=== PATIENT | female | born 1940 | race Caucasian/White ===

== ENCOUNTER 2019-06-27 17:51 | Inpatient (IN) | payer MEDICARE ==
[2019-06-27] MEDS ORDERED: Digoxin 0.5 MG/2 ML AMP ONE (18:01)
[2019-06-27] MEDS ORDERED: Dextrose 50% Abboject 50 ML SYRINGE SLOW IVP PRN (19:27)
[2019-06-27] MEDS ORDERED: Dextrose 5% in Water 1,000 ML IV PRN (19:27)
[2019-06-27] MEDS ORDERED: Diltiazem 125 MG in Sodium Chloride 0.9% 100 ML IVPB SCH (19:30)
[2019-06-27 19:51] LABS: Troponin I 0.023 ng/mL (< 0.028)
[2019-06-27 22:51] LABS: Troponin I 0.033 ng/mL (< 0.028)
[2019-06-27] MEDS: HumaLOG 300 UNITS/3 ML VIAL SC PRN (22:54)
--- NOTE | 2019-06-28 02:06 | HP ---
CHIEF COMPLAINT: Shortness of breath. HISTORY OF PRESENT ILLNESS: This patient is a 79-year-old female, who was at [facility] in [place] for rehabilitation. The patient reports that she was doing relatively well at home, getting up and around, but then started having some generalized weakness. Says she was admitted to the hospital for 7 days or 8 days, started stabilizing and was sent to rehabilitation. Said she was getting stronger working with rehabilitation, but then suddenly just became very profoundly weak and short of breath. She was apparently being sent for an outpatient chest x-ray. However, when the ambulance service arrived, the patient was noted to be very tachypneic and have some respiratory distress and saturations were 77-78% on room air. Therefore, the decision was made to bring the patient to the emergency department. She was initially seen in [facility] ER, she was tachycardic and tachypneic. She had a pulse rate documented as high as 141, although it was fairly variable. She had labs, which were remarkable for hemoglobin of 10.9, MCV 102, lipase 11, CK 19, troponin is 0.028. Chemistries normal with the exception of a glucose of 503. Sodium 135, potassium 5.0, chloride 82, anion gap 16, BUN 19, creatinine 0.94. BNP was 411. Chest x-ray showed CHF with pleural effusions. Chest CT showed no pulmonary embolism, but CHF with pleural effusions there. The patient did have a blood pressure noted as low as 66/45, that was with a heart rate of 150s. She appeared to be in new onset atrial fibrillation with rapid ventricular response. She was given Lovenox and Cardizem. The patient was started on diltiazem drip and given 10 units of insulin and transferred to our facility. Currently, the patient reports that she is feeling somewhat better. She is breathing a little easier. She reports that she has not had any fevers or chills. She has had a little bit of a cough. Also says that she extracted a booger from her nose that was not normal. She denies any specific pain in the chest. REVIEW OF SYSTEMS: The patient reported that she had very poor appetite, but was actually somewhat better. She has been voiding well with Lasix and she has been having fairly regular bowel movements. She also endorsed having episodes of fairly severe peripheral edema at times. All other systems reviewed, all pertinent positives and negatives noted in the history of present illness. PAST MEDICAL HISTORY: Primarily obtained from her records from [facility] and the patient herself include COPD, hypertension, low back pain, hyponatremia, "unspecified tachycardia," systolic congestive heart failure, although the patient herself says she is not familiar with having had that diagnosis. Apparently has history of some oropharyngeal dysphagia and is on a mechanical soft diet. She has a history of muscle wasting and atrophy and history of an abdominal hernia. PAST SURGICAL HISTORY: The patient has had bilateral cataract ectomy with intra-ocular lens implants. FAMILY HISTORY: Noncontributory. SOCIAL HISTORY: The patient is . Nonsmoker, nondrinker, and nondrug user. She is DNAR. Her is her surrogate decision maker. CURRENT MEDICATIONS: Tylenol No. 3 p.r.n. low back pain, budesonide 0.5 mg or 2 mL 0.5 inhaled orally b.i.d., diltiazem ER 60 mg p.o. b.i.d. for "dysrhythmia," prednisone 40 mg p.o. daily, Lasix 20 mg daily, docusate 100 mg b.i.d., pantoprazole 40 mg daily, DuoNebs q.6 hours p.r.n. and Tylenol p.r.n. PHYSICAL EXAMINATION: VITAL SIGNS: Now, BP 126/67, pulse ranging from 86 to 120s, O2 saturations 100% on 4 L via face mask. GENERAL: The patient is awake and alert. She is very pleasant, cooperative. HEENT: PERRL. She has some arcus senilis. No OP lesions other than slightly dry oral mucosa. NECK: Supple and symmetric. HEART: Regular at the moment with no murmurs or rubs. LUNGS: Diminished with bibasilar rales. ABDOMEN: Minimally distended, minimally hypertympanic, nontender. Normal bowel sounds. EXTREMITIES: Reveal trace to 1+ edema at the sock line area. She has some chronic stasis dermatitis and some superficial sloughing of scaling skin, likely due to chronic stasis as well. PSYCH: The patient appears to have normal affect and behavior. NEURO: The patient appears to have spontaneous movement of her extremities with no focal deficits. DIAGNOSTIC STUDIES: EKG here, there are several ranging from possible sinus tachycardia versus atrial flutter to atrial fibrillation. IMPRESSION AND PLAN: 1. Atrial fibrillation with rapid ventricular response. This appears to be new, although she does have the diagnosis of "unspecified tachycardia" on her records from [facility]. She is on diltiazem, which is apparently for heart rate control. She is currently on a diltiazem drip, which we will continue. She has had Lovenox, which we will continue at a mg per kg b.i.d. as well. Presently, she appears to be tolerating the atrial fibrillation and the tachycardia relatively well. We will continue with the Cardizem drip for now. She also received 0.5 of digoxin in the emergency department, which may need to be continued in the morning if she is still tachycardic. 2. Acute hypoxic respiratory failure, likely combination of acute atrial fibrillation with rapid ventricular response, congestive heart failure and pleural effusions. We will continue with supplemental oxygen as needed. 3. Congestive heart failure, unclear as to the type of heart failure, could be high-output failure from tachycardia, although it appears to likely be more long-term. We will obtain an echocardiogram as we do not have any on record for her. We will also consult Cardiology. Continue with the Lasix and for now the diltiazem drip. May need to be converted to beta blockers or ANNETTE inhibitors once we know the results of her echocardiogram. 4. Chronic obstructive pulmonary disease. The patient appears to be on prednisone at 40 mg a day for chronic obstructive pulmonary disease. She also takes budesonide. We will keep her going with some nebulizers p.r.n. while she is here. 5. Hypotension. It appears the patient's hypotension was related to the episodes of tachycardia, appears to be stable presently. 6. History of hypertension. Again, holding any of her p.o. medications until she is stable and off the diltiazem drip. 7. History of stasis dermatitis of the lower extremities. Concerning that this could be related to either her calcium channel westley or heart failure. Again, we will know more once we have the echocardiogram results. Job ID: [id number]
[2019-06-28] MEDS: Furosemide 40 MG/4 ML VIAL SLOW IVP SCH ×2 (05:18→15:21)
[2019-06-28 05:31] LABS: #Basophils 0.1 thou/uL (0.0-0.2); #Lymphocytes 0.8 thou/uL (1.20-3.40); #Monocytes 0.5 thou/uL (0.11-0.59); #Neutrophils 6.8 thou/uL (1.40-6.50); %Basophils 0.7 % (0.0-1.0); %Eosinophils 0.4 % (0.0-10.0); %Lymphocytes 9.6 % (21.0-51.0); %Monocytes 5.5 % (0.0-10.0); %Neutrophils 83.8 % (42.0-75.0); Hemoglobin 11.3 g/dL (12.0-16.0); Mean Corpuscular HGB CONC 31.9 g/dL (32.0-36.0); Mean Corpuscular Hemoglobin 31.9 pg (27.0-31.0); Mean Platelet Volume 7.8 fL (7.4-10.4); Platelet Count 228 thou/uL (130-400); RBC Distribution Width 12.5 % (11.5-14.5); Red Blood Cell (RBC) Count 3.53 mill/uL (4.20-5.40); White Blood Cell (WBC) Count 8.2 thou/uL (4.8-10.8)
[2019-06-28 05:52] LABS: ALT (SGPT) 28 U/L (8-55); AST (SGOT) 9 U/L (5-34); Albumin 3.6 g/dL (3.4-4.8); Alkaline Phosphatase 78 U/L (40-150); BUN (Urea Nitrogen) 15 mg/dL (9.8-20.1); Bilirubin, Total 0.4 mg/dL (0.2-1.2); Calc. Creatinine Clearance 74 mL/min (70-130); Calcium 8.8 mg/dL (7.8-10.44); Estimated GFR-MDRD 87; Globulin 2.4 g/dL (2.4-3.5); Glucose 133 mg/dL (83-110)
[2019-06-28 06:01] LABS: Anion Gap 13 mmol/L (10-20); Chloride 84 mmol/L (98-107); Potassium 3.6 mmol/L (3.5-5.1); Sodium 135 mmol/L (136-145)
[2019-06-28 06:04] LABS: Carbon Dioxide 42 mmol/L (23-31)
--- NOTE | 2019-06-28 09:03 | PDOC.HOSPP ---
- Subjective Encounter Date: 06/28/19 Encounter Time: 09:01 Subjective: Feeling better in general. Hungry. Breathing is better. - Objective Vital Signs & Weight: Vital Signs (12 hours) Temp Pulse Ox 06/28/19 07:21 97.2 F L 06/28/19 03:31 98.3 F 06/27/19 23:57 97.4 F L 06/27/19 21:30 98.1 F 96 Weight Weight 147 lb 11.355 oz Most Recent Monitor Data Heart Rate from ECG 84 NIBP 119/55 NIBP BP-Mean 76 Respiration from ECG 16 SpO2 95 I&O: 06/27/19 06/28/19 06/29/19 06:59 06:59 06:59 Intake Total 10 Balance 10 Result Diagrams: 06/28/19 05:22 06/28/19 05:22 Additional Labs: Accuchecks 06/28/19 06/27/19 05:53 18:46 POC Glucose 147 H 301 H Hospitalist ROS - Medication Medications: Active Medications Generic Name Dose Route Start Last Admin Trade Name Frankie PRN Reason Stop Dose Admin Furosemide 40 mg 06/28/19 06:00 06/28/19 05:18 Lasix SLOW IVP 40 mg 0600,1400 WHITNEY Administration Insulin Human Lispro 0 units 06/27/19 19:27 06/27/19 22:54 Humalog SC 4 unit .MILD SLIDING SCALE PRN Administration Mild Correctional Scale - Exam General Appearance: NAD, awake alert General - other findings: Gown wet, smells like urine. Heart: RRR, no murmur, no gallops, no rubs, normal peripheral pulses Respiratory: CTAB, no wheezes, no rales Gastrointestinal: soft, non-tender, non-distended, normal bowel sounds, no palpable masses, no hepatomegaly, no splenomegaly, no bruit Skin: normal turgor Neurological: CN's grossly intact Musculoskeletal: normal tone, generalized weakness Psychiatric: normal affect, normal behavior, A&O x 3 Hosp A/P (1) Atrial fibrillation with rapid ventricular response Code(s): I48.91 - UNSPECIFIED ATRIAL FIBRILLATION Status: Acute (2) Acute respiratory failure with hypoxia Code(s): J96.01 - ACUTE RESPIRATORY FAILURE WITH HYPOXIA Status: Acute (3) CHF (congestive heart failure) Code(s): I50.9 - HEART FAILURE, UNSPECIFIED Status: Acute (4) Hyperglycemia Code(s): R73.9 - HYPERGLYCEMIA, UNSPECIFIED Status: Acute (5) Alkalosis Code(s): E87.3 - ALKALOSIS Status: Acute (6) COPD (chronic obstructive pulmonary disease) Status: Acute (7) Hypotension Status: Acute (8) Elevated troponin Code(s): R74.8 - ABNORMAL LEVELS OF OTHER SERUM ENZYMES Status: Acute (9) Macrocytic anemia Code(s): D53.9 - NUTRITIONAL ANEMIA, UNSPECIFIED Status: Acute - Plan Feeling better. Continue Diuresis, supplemental oxygen. Resume po Cardizem. ECHO pending. Depending on results, may need to consider BB or ACEI. Continue anticoagulation. Cards consult pending. Glucose much improved. Resume heart healthy diet, mechanical soft. PRN nebs. Hypotension resolved. Appeared to rate related. Trops minimally elevated. Likely demand ischemia. Check 3rd now. B12, Folate in am.
[2019-06-28 09:50] LABS: Troponin I 0.063 ng/mL (< 0.028)
[2019-06-28] MEDS: Enoxaparin Sodium 80 MG/0.8 ML SYRINGE SC SCH ×2 (09:51→20:21)
[2019-06-28] MEDS: predniSONE 20 MG TAB PO SCH (09:51)
[2019-06-28] MEDS: Aspirin 81 mg Enteric Coated Tablet PO SCH (09:51)
[2019-06-28] MEDS: Diltiazem HCl SR 60 mg Capsule PO SCH ×2 (09:51→20:21)
[2019-06-28] MEDS: Pantoprazole 40 MG GRANULES PACKET PO SCH (09:52)
[2019-06-28] MEDS: Acetaminophen/Codeine 30-300mg Tablet PO SCH ×3 (11:19→20:19)
[2019-06-28] MEDS: HumaLOG 300 UNITS/3 ML VIAL SC PRN ×3 (11:20→20:16)
[2019-06-28] MEDS ORDERED: Acetaminophen/Codeine 30-300mg Tablet PO SCH (15:00)
[2019-06-28] MEDS ORDERED: acetaZOLAMIDE Sodium 500 mg Vial IVP SCH (17:45)
[2019-06-28] MEDS ORDERED: Sodium Chloride 0.9% 15 ML NEB ONE (17:56)
--- NOTE | 2019-06-28 18:37 | CON ---
DATE OF CONSULTATION: 06/28/2019 REASON FOR CONSULTATION: Tachycardia. HISTORY OF PRESENT ILLNESS: Ms. Cedillo is a pleasant 79-year-old white female, who I have seen in the past, who comes to the hospital for shortness of breath. She was in rehab and was getting more short of breath than normal. She was taken for an outpatient chest x-ray via ambulance, but it was noted that her sats were about 77%, so she was taken to the ER in [place] and was found to be tachycardic and tachypneic with heart rate in the 140s. EKG appeared to be atrial flutter versus SVT or an atrial tach, so she was admitted for diuresis. She eventually converted back into sinus rhythm. Her blood pressure had been as low as 60s over 40s with the heart rate in the 150s. Currently, she is much better now. Her blood pressure is in the 140s and she is no longer on a BiPAP. She is on a nasal cannula on 2 L only. PAST MEDICAL HISTORY: 1. COPD. 2. Hypertension. 3. History of chronic low back pain. 4. Hyponatremia in the past. 5. History of dysphagia. 6. Muscle wasting and atrophy. 7. Abdominal hernia in the past. PAST SURGICAL HISTORY: Bilateral cataract surgery. FAMILY HISTORY: Noncontributory. SOCIAL HISTORY: No alcohol, tobacco, or drugs. is the decision maker. She is DNR, but she is amenable to procedures. OUTPATIENT MEDICATIONS: 1. Tylenol 3. 2. Budesonide. 3. Diltiazem 60 mg b.i.d. 4. Prednisone 40 mg a day. 5. Lasix 20 mg a day. 6. Docusate. 7. Pantoprazole. 8. DuoNeb. 9. Tylenol. ALLERGIES: NO KNOWN DRUG ALLERGIES. REVIEW OF SYSTEMS: A 12-point review of systems was done and was all negative unless stated in the history of present illness. PHYSICAL EXAMINATION: VITAL SIGNS: Temperature 97.1, pulse 79, respiratory rate 20, saturating 100% on 1 L nasal cannula, blood pressure 117/54. GENERAL: Awake, alert, and oriented x3. No distress. HEENT: Normocephalic and atraumatic. NECK: Supple. LUNGS: Clear. CARDIOVASCULAR: S1 and S2. No S3 or S4. No murmurs. ABDOMEN: Soft. Positive bowel sounds. EXTREMITIES: Trace edema. SKIN: Warm and dry. LABORATORY DATA: Laboratory work was reviewed. CBC with a white count of 8.2, hemoglobin 11.3, hematocrit 35.3, platelet count of 228. Chemistries with a sodium of 135, potassium was 3.6, chloride of 84, carbon dioxide of 42, glucose in the 140s to 200s. Troponin was in the indeterminate range at 0.02, 0.03, and 0.06. Echocardiogram was reviewed. LV function was 55% to 60% with normal size left atrium, [id number] TR, and elevated right ventricular systolic pressures. EKG was reviewed, appears to be either an atrial tachycardia. At times, it looks more like a 2:1 atrial flutter. Currently in sinus rhythm on telemetry. ASSESSMENT: 1. Atrial flutter with 2:1 atrioventricular block versus an atrial tachycardia. 2. Acute on chronic diastolic heart failure, improving. PLAN: 1. Continue IV diuresis. She is already doing a lot better. 2. Continue full anticoagulation just in case this is atrial flutter, which I think it is. 3. Continue her p.o. diltiazem as she is back in sinus with normal heart rate. 4. Consult Electrophysiology. They can decide if this is a rhythm that is amenable to catheter based ablation versus just medications. Thank you for letting us to participate in the care of your patient. We will follow. Job ID: [id number]
[2019-06-28] MEDS: Budesonide 0.5 MG/2 ML NEB NEB SCH (19:16)
[2019-06-28 23:18] LABS: Bilirubin Negative (Negative); Blood, Urine Negative (Negative); Clarity Clear (Clear); Glucose, Urine (Dipstick) 50 mg/dL (Negative); Leukocyte Negative Leu/uL (Negative); Nitrite Negative (Negative); Protein, Urine (Dipstick) 10 mg/dL (Neg-Trace); Urobilinogen Normal mg/dL (Less than 2)
--- NOTE | 2019-06-29 00:13 | CON ---
DATE OF CONSULTATION: HISTORY OF PRESENT ILLNESS: Ms. Cedillo is a very pleasant 79-year-old female. She apparently presented yesterday afternoon with complaints of shortness of breath. She was found to be in rapid atrial fibrillation. She subsequently has been admitted to the intermediate care unit. She is clinically improved. In fact, she is back in sinus rhythm. PAST MEDICAL HISTORY: Remarkable for, 1. COPD. 2. Hypertension. 3. History of hyponatremia. 4. History of heart failure. 5. History of swallowing dysfunction. 6. History of muscle wasting and deconditioning. 7. History of cataract surgery. SOCIAL HISTORY: She is a nonsmoker, nondrinker, nondrug user. She lives in [facility]. FAMILY HISTORY: Noncontributory. MEDICATIONS: Have been reviewed. PHYSICAL EXAMINATION: GENERAL: She is in no distress. She told me that she was at [facility]. VITAL SIGNS: Her blood pressure is 131/55, heart rate 83. She is afebrile. Respiratory rate is 20. HEAD AND NECK: Unremarkable. LUNGS: Clear. HEART: Regular rhythm. ABDOMEN: Soft and nontender. EXTREMITIES: Without clubbing, cyanosis, or edema. NEURO: Grossly nonfocal. LABORATORY DATA: White count 8.2, hemoglobin 11.3, platelets 228. Sodium 135, potassium 3.6, chloride 84, bicarb 42, BUN 15, and creatinine 0.6. Her bicarb in October 03 was 27. IMPRESSION: 1. Rapid atrial fibrillation. 2. Normal left ventricular systolic function this admission. 3. Metabolic alkalosis. 4. Anticoagulation for atrial fibrillation. It is unclear to me how much of a fall risk she is at this point. It would not be unreasonable to give her Diamox to help correct her alkalosis. I doubt this is an obesity hypoventilation alkalosis. We will follow her while she is the intermediate care unit. Job ID: [id number] This is a 50 minute consult with 50% of time spent on unit coordinating care [facility]
--- NOTE | 2019-06-29 02:03 | CON ---
DATE OF CONSULTATION: 06/28/2019 REASON FOR CONSULTATION: Atrial flutter. HISTORY OF PRESENT ILLNESS: Ms. Cedillo is a pleasant 79-year-old white female, who has history of coronary artery disease and has been followed by Dr. Bryant in the past. She was in the rehab facility at [place] for generalized weakness. She became more short of breath and was noted to have hypoxia. She was found to be tachycardic and tachypneic. EKG was performed which showed atrial tachycardia. She was transferred to [facility] and was treated with diuresis. She spontaneously converted to sinus rhythm. Blood pressure was initially low while in tachycardia down to 60 systolic. She is currently resting comfortably in bed in the IMCU unit. She was initially treated with BIPAP for respiratory distress. I have reviewed her EKG. It shows atrial tachycardia which was sustained. PAST MEDICAL HISTORY: 1. COPD. 2. Hypertension. 3. CAD. 4. Chronic low back pain. 5. Hyponatremia. 6. Dysphagia. 7. Generalized weakness. 8. Abdominal hernia. PAST SURGICAL HISTORY: Bilateral cataract surgery. SOCIAL HISTORY: and currently in the rehab facility at [place] prior to admission. No alcohol or tobacco. OUTPATIENT MEDICATIONS: 1. Tylenol. 2. Diltiazem 60 mg b.i.d. 3. Prednisone 40 mg daily. 4. Lasix 20 mg a day. 5. DuoNebs. 6. Docusate. 7. Pantoprazole. ALLERGIES: NO KNOWN DRUG ALLERGIES. REVIEW OF SYSTEMS: Positive for orthopnea and edema which have improved. No chest discomfort. No syncope. No seizures, unilateral weakness, or numbness, sensory deficits, speech deficits. PHYSICAL EXAMINATION: GENERAL: Alert and oriented x4, in no apparent distress. VITAL SIGNS: Temperature 97.1, pulse 79, respiratory rate 12, oxygen saturation 100% on 1 L nasal cannula, blood pressure 117/54. HEENT: No lesions. NECK: No JVD. CARDIOVASCULAR: Regular rate and rhythm. No murmurs, gallops, or rubs. LUNGS: Clear to auscultation bilaterally. Normal inspiratory effort. EXTREMITIES: 1+ edema bilaterally. SKIN: Warm and dry. LABORATORY DATA: Reviewed. Hemoglobin 11.3, platelet 228. Potassium 3.6, sodium 135. Indeterminate troponins. Echocardiogram, ejection fraction 55% to 60% with normal left atrial size, [id number] tricuspid regurgitation, and elevated right ventricular systolic pressures. ASSESSMENT: 1. Atrial tachycardia versus atypical atrial flutter. 2. Acute on chronic diastolic heart failure. RECOMMENDATIONS: 1. Agree with current diuresis. 2. The rhythm is minimal to radiofrequency ablation. We will continue diltiazem at this time. 3. Rediscussed ablation as an outpatient prior to discharge. Job ID: [id number]
[2019-06-29 04:32] LABS: BUN (Urea Nitrogen) 16 mg/dL (9.8-20.1); Calc. Creatinine Clearance 70 mL/min (70-130); Calcium 8.6 mg/dL (7.8-10.44); Estimated GFR-MDRD 81; Glucose 127 mg/dL (83-110)
[2019-06-29 04:41] LABS: Anion Gap 14 mmol/L (10-20); Carbon Dioxide 38 mmol/L (23-31); Chloride 83 mmol/L (98-107); Potassium 3.3 mmol/L (3.5-5.1); Sodium 132 mmol/L (136-145)
[2019-06-29 04:59] LABS: Folate (Folic Acid) 6.6 ng/mL (7.0-31.4)
[2019-06-29] MEDS: Furosemide 40 MG/4 ML VIAL SLOW IVP SCH ×2 (06:14→14:12)
[2019-06-29] MEDS: Budesonide 0.5 MG/2 ML NEB NEB SCH ×2 (07:57→18:50)
[2019-06-29] MEDS: Acetaminophen/Codeine 30-300mg Tablet PO SCH ×3 (08:38→20:33)
[2019-06-29] MEDS: predniSONE 20 MG TAB PO SCH (08:38)
[2019-06-29] MEDS: Diltiazem HCl SR 60 mg Capsule PO SCH ×2 (08:39→20:34)
[2019-06-29] MEDS: Pantoprazole 40 MG GRANULES PACKET PO SCH (08:39)
[2019-06-29] MEDS: Aspirin 81 mg Enteric Coated Tablet PO SCH (08:39)
[2019-06-29] MEDS: Enoxaparin Sodium 80 MG/0.8 ML SYRINGE SC SCH (08:39)
[2019-06-29] MEDS ORDERED: Potassium Chloride 20 MEQ TAB PO SCH (10:30)
--- NOTE | 2019-06-29 11:17 | PQF ---
CLINICAL DOCUMENTATION IMPROVEMENT CLARIFICATION FORM: ICD-10 Updated PLEASE DO AN ADDENDUM TO THE PROGRESS NOTE WITH ANY DOCUMENTATION UPDATES OR ADDITIONS AND CARRY THROUGH TO DC SUMMARY. THANK YOU. DATE: 06/29/19 ATTN: DR. VELASCO Please exercise your independent, professional judgment in responding to the clarification form. Clinical indicators are provided on the bottom of this form for your review Please check appropriate box(s): [ ] Acute Respiratory Failure: [ ] with Hypoxia[ ] with Hypercapnia [ ] Acute On Chronic Respiratory Failure: [ ] with Hypoxia [ ] with Hypercapnia [ ] Other diagnosis [ ] Unable to determine In addition, please specify: Present on Admission (POA): [ ] Yes [ ] No [ ] Unable to determine For continuity of documentation, please document condition throughout progress notes and discharge summary. Thank You. CLINICAL INDICATORS - SIGNS / SYMPTOMS / LABS ER NOTE: "INITIAL PULSE OX WAS 78%" "PATIENT REPORTS THAT SHE IS ON 4L OXYGEN AT HOME" PULSE 141 RR 24 RISKS: H/O COPD (H&P 06/27) FORMER SMOKER (ER NOTE) TREATMENT: CPAP IN ER (ER NOTE) IV LASIX (06/28-PRESENT) PREDISONE (06/28-PRESENT) PULMOCORT NEBS (06/28-PRESENT) DUONEBS (910-PRESENT) PULMONARY CONSULT IMCU MONITORING SAP [employer] Winform Viewer(This form is maintained as a part of the permanent medical record) 2014 [employer]. All Rights Reserved [email or web address] Office: [phone] [facility]
[2019-06-29] MEDS: HumaLOG 300 UNITS/3 ML VIAL SC PRN ×3 (11:38→20:38)
--- NOTE | 2019-06-29 11:52 | PRG ---
DATE OF SERVICE: 06/29/2019 SUBJECTIVE: Cindy Cedillo is oriented x1. She is in no distress. She still appears sinus rhythm. OBJECTIVE: VITAL SIGNS: O2 saturation is 94% on 2 L, heart rate is 90, blood pressure stable, respiratory rate in the teens. LUNGS: Clear. HEART: Regular rhythm. ABDOMEN: Soft, nontender. LABORATORY DATA: Sodium 132, potassium 3.3, chloride 83, bicarb 38, BUN 16, creatinine 0.7. IMPRESSION: 1. Atrial flutter. 2. Metabolic alkalosis, probably brought on by diuretics. 3. Alkalosis is improved with Diamox. 4. History of reported chronic obstructive pulmonary disease. 5. History of coronary artery disease. 6. Normal ejection fraction. 7. Diastolic heart failure. PLAN: 1. She will be transferred out of the intermediate care given her stability to telemetry. 2. We will follow from a distance. Job ID: [id number] MTDD
[2019-06-29] MEDS ORDERED: Cyanocobalamin 1000 MCG/ML VIAL IM SCH (12:00)
--- NOTE | 2019-06-29 15:39 | PDOC.CPN ---
- Subjective Date: 06/29/19 Time: 15:35 Interval history: She is doing well. no chest pain. No more arrhythmias. - Review of Systems General: denies: fever/chills, weight/appetite/sleep changes, night sweats, fatigue Respiratory: denies: cough, congestion, shortness of breath, exercise intolerance Cardiovascular: denies: chest pain, palpitation, edema, paroxysmal nocturnal dyspnea, orthopnea Gastrointestinal: denies: nausea, vomiting, diarrhea, constipation, abd pain, GI bleeding Musculoskeletal: reports: swelling. denies: pain, tenderness, stiffness, arthritis/arthralgias Neurological: reports: weakness. denies: numbness, syncope, seizure - Objective Allergies/Adverse Reactions: Allergies Allergy/AdvReac Type Severity Reaction Status Date / Time No Known Allergies Allergy Unverified 06/27/19 19:30 Visit Medications: Current Medications Acetaminophen/Codeine Phosphate (Tylenol #3) 1 tab PO TID [facility] Last Admin: 06/29/19 14:14 Dose: 1 tab Albuterol/Ipratropium (Duoneb) 3 ml NEB [id number] PRN PRN Reason: SOB &/or Wheezing Last Admin: 06/29/19 07:58 Dose: 3 ml Aspirin (Ecotrin) 81 mg PO DAILY [facility] Last Admin: 06/29/19 08:39 Dose: 81 mg Budesonide (Pulmicort Neb Solution) 0.5 mg NEB BID-RT [facility] Last Admin: 06/29/19 07:57 Dose: 0.5 mg Cyanocobalamin (Vitamin B-12) 1,000 mcg IM [id number] [facility] Last Admin: 06/29/19 11:38 Dose: 1,000 mcg Dextrose/Water (Dextrose 50%) 25 gm SLOW IVP PRN PRN PRN Reason: Hypoglycemia Diltiazem HCl (Cardizem Sr) 60 mg PO BID [facility] Last Admin: 06/29/19 08:39 Dose: 60 mg Enoxaparin Sodium (Lovenox) 30 mg SC 0900 [facility] Folic Acid (Folvite) 1 mg PO DAILY [facility] Furosemide (Lasix) 40 mg PO DAILY-[facility] Glucagon (Glucagon) 1 mg IM PRN PRN PRN Reason: Hypoglycemia Dextrose/Water (D5w) 1,000 mls @ 0 mls/hr IV .Q0M PRN PRN Reason: Hypoglycemia Insulin Human Lispro (Humalog) 0 units SC .MILD SLIDING SCALE PRN PRN Reason: Mild Correctional Scale Last Admin: 06/29/19 11:38 Dose: 5 unit Metoprolol Succinate (Toprol Xl) 25 mg PO DAILY [facility] Pantoprazole Sodium (Protonix) 20 mg PO DAILY [facility] Last Admin: 06/29/19 08:39 Dose: 20 mg Prednisone (Prednisone) 20 mg PO QAM-WM [facility] Last Admin: 06/29/19 08:38 Dose: 20 mg Sodium Chloride (Flush - Normal Saline) 10 ml IVF PRN PRN PRN Reason: Saline Flush Last Admin: 06/28/19 20:27 Dose: 10 ml Vital Signs & Weight: Vital Signs Temp Pulse Resp BP Pulse Ox 06/29/19 11:35 98.1 F 92 18 135/58 L 97 06/29/19 10:32 98.0 F 88 18 120/56 L 97 06/29/19 08:02 94 L 06/29/19 07:57 94 21 H 06/29/19 07:33 96 06/29/19 07:28 97.9 F 06/29/19 03:49 97.6 F Admit Weight 147 lb 11.355 oz Weight 144 lb 6.444 oz - Physical Exam General: alert & oriented x3 HEENT: mucus membranes moist Neck: supple neck Cardiac: regular rate and rhythm, no murmur Lungs: clear to auscultation Neuro: grossly intact Abdomen: active bowel sounds, soft, non-tender Skin: clear Musculoskeletal: normal range of motion - Labs Result Diagrams: 06/28/19 05:22 06/29/19 03:38 Troponin/CKMB Troponin I 0.063 ng/mL (< 0.028) H 06/28/19 09:16 - Telemetry Sinus rhythms and dysrhythmias: sinus rhythm - Assessment/Plan Assessment/Plan: 1. Atrial tachycardia 2. Acute on chronic systolic heart failure, improved. PLAN: - Switch to PO lasix. - EP evaluation appreciated, likely atrial tach and not flutter. - Will discontinue full dose lovenox and switch to DVT prophylaxis dose level. - Will start BB and continue diltiazem. - Monitor on telemetry. - Will need placement for rehab most likely. - Would prefer not to start flecainide unless patient shows compliance. - Will follow.
--- NOTE | 2019-06-29 16:44 | PDOC.HOSPP ---
- Subjective Subjective: Feeling better. Breathing more comfortably. No complaints. - Objective Vital Signs & Weight: Vital Signs (12 hours) Temp Pulse Resp BP Pulse Ox 06/29/19 16:08 97.9 F 80 18 113/53 L 98 06/29/19 11:35 98.1 F 92 18 135/58 L 97 06/29/19 10:32 98.0 F 88 18 120/56 L 97 06/29/19 08:02 94 L 06/29/19 07:57 94 21 H 06/29/19 07:33 96 06/29/19 07:28 97.9 F Weight Admit Weight 147 lb 11.355 oz Weight 144 lb 6.444 oz Most Recent Monitor Data Heart Rate from ECG 90 NIBP 126/48 NIBP BP-Mean 74 Respiration from ECG 18 SpO2 95 I&O: 06/28/19 06/29/19 06/30/19 06:59 06:59 06:59 Intake Total 10 650 Output Total 1150 Balance 10 -500 Result Diagrams: 06/28/19 05:22 06/29/19 03:38 Additional Labs: Accuchecks 06/29/19 06/29/19 06/28/19 11:09 05:38 20:14 POC Glucose 349 H 133 H 269 H 06/28/19 16:35 POC Glucose 296 H Hospitalist ROS - Medication Medications: Active Medications Generic Name Dose Route Start Last Admin Trade Name Freq PRN Reason Stop Dose Admin Acetaminophen/Codeine Phosphate 1 tab 06/28/19 21:00 06/29/19 14:14 Tylenol #3 PO 1 tab TID WHITNEY Administration Albuterol/Ipratropium 3 ml 06/27/19 19:32 06/29/19 07:58 Duoneb NEB 3 ml [id number] PRN Administration SOB &/or Wheezing Aspirin 81 mg 06/28/19 09:00 06/29/19 08:39 Ecotrin PO 81 mg DAILY WHITNEY Administration Budesonide 0.5 mg 06/28/19 18:30 06/29/19 07:57 Pulmicort Neb Solution NEB 0.5 mg BID-RT WHITNEY Administration Cyanocobalamin 1,000 mcg 06/29/19 12:00 06/29/19 11:38 Vitamin B-12 IM 1,000 mcg [id number] WHITNEY Administration Diltiazem HCl 60 mg 06/28/19 09:00 06/29/19 08:39 Cardizem Sr PO 60 mg BID WHITNEY Administration Insulin Human Lispro 0 units 06/27/19 19:27 06/29/19 11:38 Humalog SC 5 unit .MILD SLIDING SCALE PRN Administration Mild Correctional Scale Pantoprazole Sodium 20 mg 06/28/19 09:00 06/29/19 08:39 Protonix PO 20 mg DAILY WHITNEY Administration Prednisone 20 mg 06/28/19 08:00 06/29/19 08:38 Prednisone PO 20 mg QAM-WM WHITNEY Administration Sodium Chloride 10 ml 06/27/19 19:32 06/28/19 20:27 Flush - Normal Saline IVF 10 ml PRN PRN Administration Saline Flush - Exam General Appearance: NAD, awake alert Heart: RRR, no murmur, no gallops, no rubs, normal peripheral pulses Respiratory: CTAB, no wheezes, no rales, no ronchi, normal chest expansion, no tachypnea, normal percussion Gastrointestinal: soft, non-tender, non-distended, normal bowel sounds, no palpable masses, no hepatomegaly, no splenomegaly, no bruit Extremities: no cyanosis, no clubbing, no edema Musculoskeletal: normal tone Hosp A/P (1) Atrial fibrillation with rapid ventricular response Code(s): I48.91 - UNSPECIFIED ATRIAL FIBRILLATION Status: Ruled-out (2) Acute respiratory failure with hypoxia Code(s): J96.01 - ACUTE RESPIRATORY FAILURE WITH HYPOXIA Status: Acute (3) CHF (congestive heart failure) Code(s): I50.9 - HEART FAILURE, UNSPECIFIED Status: Acute Qualifiers: Heart failure type: systolic (4) Hyperglycemia Code(s): R73.9 - HYPERGLYCEMIA, UNSPECIFIED Status: Acute (5) Alkalosis Code(s): E87.3 - ALKALOSIS Status: Acute (6) COPD (chronic obstructive pulmonary disease) Status: Acute (7) Hypotension Status: Acute (8) Elevated troponin Code(s): R74.8 - ABNORMAL LEVELS OF OTHER SERUM ENZYMES Status: Acute (9) Macrocytic anemia Code(s): D53.9 - NUTRITIONAL ANEMIA, UNSPECIFIED Status: Acute (10) B12 deficiency Code(s): E53.8 - DEFICIENCY OF OTHER SPECIFIED B GROUP VITAMINS Status: Acute (11) Folate deficiency Code(s): E53.8 - DEFICIENCY OF OTHER SPECIFIED B GROUP VITAMINS Status: Acute - Plan Feeling better. Continue Diuresis, supplemental oxygen. Resume po Cardizem. Cards added BB. ECHO with EF 55% and Mod TR. Continue anticoagulation. Glucose much improved. Resume heart healthy diet, mechanical soft. PRN nebs. Hypotension resolved. Appeared to rate related. Trops minimally elevated. Likely demand ischemia. B12 and Folate low. Oral replacement started. Moved to tele floor.
--- NOTE | 2019-06-29 18:34 | PRG ---
DATE OF SERVICE: 06/29/2019 CHIEF COMPLAINT: Dyspnea, tachycardia. SUBJECTIVE: Ms. Cedillo is doing well today. She has had no further tachycardia. Her dyspnea has improved. She has no chest discomfort and no syncope. OBJECTIVE: VITAL SIGNS: Temperature 98.0, blood pressure 113/53, pulse 80, respiratory rate 12, oxygen saturation 98% on 4 L nasal cannula. CARDIOVASCULAR: Regular rate and rhythm. No murmurs, gallops, or rubs. LUNGS: Clear to auscultation bilaterally. Normal respiratory effort. EXTREMITIES: No cyanosis, clubbing, or edema. DIAGNOSTIC STUDIES: Telemetry, sinus rhythm. IMPRESSION AND PLAN: 1. Sustained atrial tachycardia: Spontaneously converted to sinus rhythm. 2. Acute on chronic diastolic heart failure: Improved. 3. Generalized weakness and poor functional status: She came from a rehab facility in [place]. RECOMMENDATIONS: 1. She may be a candidate for an EP study at a later day. It will be helpful to attempt to ablate her atrial tachycardia. At this time, her functional status and/or current clinical limitations preclude electrophysiology study during this admission. 2. Consider metoprolol or flecainide for suppression of her atrial tachycardia. 3. I discussed the case with Dr. Bryant and the patient at length. Job ID: [id number]
[2019-06-30] MEDS ORDERED: traMADol HCl 50 MG TAB PO SCH (04:00)
[2019-06-30 04:25] LABS: Hemoglobin A1c 7.7 % (4.0-6.0)
[2019-06-30 04:43] LABS: BUN (Urea Nitrogen) 19 mg/dL (9.8-20.1); Calc. Creatinine Clearance 64 mL/min (70-130); Calcium 8.8 mg/dL (7.8-10.44); Estimated GFR-MDRD 75; Glucose 127 mg/dL (83-110)
[2019-06-30 04:52] LABS: Anion Gap 14 mmol/L (10-20); Carbon Dioxide 36 mmol/L (23-31); Chloride 87 mmol/L (98-107); Potassium 3.6 mmol/L (3.5-5.1); Sodium 133 mmol/L (136-145)
[2019-06-30] MEDS: Budesonide 0.5 MG/2 ML NEB NEB SCH ×2 (06:30→18:40)
[2019-06-30] MEDS: predniSONE 20 MG TAB PO SCH (08:11)
[2019-06-30] MEDS: Acetaminophen/Codeine 30-300mg Tablet PO SCH ×3 (08:11→20:33)
[2019-06-30] MEDS: Enoxaparin Sodium 30 MG/0.3 ML SYRINGE SC SCH (08:12)
[2019-06-30] MEDS: Diltiazem HCl SR 60 mg Capsule PO SCH ×2 (08:12→20:33)
[2019-06-30] MEDS: Aspirin 81 mg Enteric Coated Tablet PO SCH (08:12)
[2019-06-30] MEDS: Folic Acid 1 MG TAB PO SCH (08:12)
[2019-06-30] MEDS: Furosemide 40 MG TAB PO SCH (08:12)
[2019-06-30] MEDS: Pantoprazole 40 MG GRANULES PACKET PO SCH (08:12)
[2019-06-30] MEDS: HumaLOG 300 UNITS/3 ML VIAL SC PRN ×3 (11:39→22:21)
--- NOTE | 2019-06-30 11:46 | RAD ---
XR Chest 1 View Portable History: Hypoxia Comparison: Radiograph June 27, 2019 Findings: Heart size is enlarged. Small to moderate effusions. Background emphysema. Mild pulmonary edema. Concern for right lower lobe mass. Impression: 1. Congestive heart failure changes. 2. Concern for a possible right lower lobe mass. Follow-up CT after resolution of acute findings are recommended.
[2019-06-30 14:35] VITALS: BMI 27.6
--- NOTE | 2019-06-30 14:55 | PDOC.HOSPP ---
- Subjective Subjective: Doing generally well. Was able to get up to stand today. She is very happy about that. Says that at home she is generally on 3-4 lpm of [place] oxygen. With that she can only ambulate from bed to chair at home. She is open to rehab, but does not want to go back to [facility]. - Objective Vital Signs & Weight: Vital Signs (12 hours) Temp Pulse Pulse Pulse Resp BP BP 06/30/19 11:11 98.6 F 84 25 H 06/30/19 10:39 68 81 133/60 159/64 H 06/30/19 08:11 06/30/19 07:13 99.2 F 88 22 H 06/30/19 06:30 76 18 06/30/19 03:04 98.1 F 79 17 BP Pulse Ox Pulse Ox Pulse Ox 06/30/19 11:11 122/60 94 L 06/30/19 10:39 95 93 L 06/30/19 08:11 92 L 06/30/19 07:13 119/58 L 92 L 06/30/19 06:30 99 06/30/19 03:04 126/60 96 Weight Admit Weight 147 lb 11.355 oz Weight 150 lb 11.2 oz Most Recent Monitor Data Heart Rate from ECG 90 NIBP 126/48 NIBP BP-Mean 74 Respiration from ECG 18 SpO2 95 I&O: 06/29/19 06/30/19 07/01/19 06:59 06:59 06:59 Intake Total 650 1294 Output Total 1150 1350 Balance -500 -56 Result Diagrams: 06/28/19 05:22 06/30/19 03:37 Additional Labs: Accuchecks 06/30/19 06/30/19 06/29/19 11:08 05:40 20:13 POC Glucose 261 H 141 H 348 H 06/29/19 16:52 POC Glucose 380 H Hospitalist ROS - Medication Medications: Active Medications Generic Name Dose Route Start Last Admin Trade Name Freq PRN Reason Stop Dose Admin Acetaminophen/Codeine Phosphate 1 tab 06/28/19 21:00 06/30/19 08:11 Tylenol #3 PO 1 tab TID WHITNEY Administration Albuterol/Ipratropium 3 ml 06/27/19 19:32 06/29/19 18:51 Duoneb NEB 3 ml [id number] PRN Administration SOB &/or Wheezing Aspirin 81 mg 06/28/19 09:00 06/30/19 08:12 Ecotrin PO 81 mg DAILY WHITNEY Administration Budesonide 0.5 mg 06/28/19 18:30 06/30/19 06:30 Pulmicort Neb Solution NEB 0.5 mg BID-RT WHITNEY Administration Cyanocobalamin 1,000 mcg 06/29/19 12:00 06/29/19 11:38 Vitamin B-12 IM 1,000 mcg [id number] WHITNEY Administration Diltiazem HCl 60 mg 06/28/19 09:00 06/30/19 08:12 Cardizem Sr PO 60 mg BID WHITNEY Administration Enoxaparin Sodium 30 mg 06/30/19 09:00 06/30/19 08:12 Lovenox SC 30 mg 0900 WHITNEY Administration Folic Acid 1 mg 06/30/19 09:00 06/30/19 08:12 Folvite PO 1 mg DAILY WHITNEY Administration Furosemide 40 mg 06/30/19 07:30 06/30/19 08:12 Lasix PO 40 mg DAILY-AC WHITNEY Administration Insulin Human Lispro 0 units 06/29/19 17:39 06/30/19 11:39 Humalog SC 6 unit .MODERATE SLIDING SC PRN Administration MODERATE SLIDING SCALE Protocol Metoprolol Succinate 25 mg 06/30/19 09:00 06/30/19 08:12 Toprol Xl PO 25 mg DAILY WHITNEY Administration Pantoprazole Sodium 20 mg 06/28/19 09:00 06/30/19 08:12 Protonix PO 20 mg DAILY WHITNEY Administration Prednisone 10 mg 06/30/19 08:00 06/30/19 08:11 Prednisone PO 10 mg QAM-WM WHITNEY Administration Sodium Chloride 10 ml 06/27/19 19:32 06/28/19 20:27 Flush - Normal Saline IVF 10 ml PRN PRN Administration Saline Flush - Exam General Appearance: NAD, awake alert Heart: RRR, no murmur, no gallops, no rubs, normal peripheral pulses Respiratory: CTAB, no wheezes, no rales, no ronchi Respiratory - other findings: Diminished Gastrointestinal: soft, non-tender, non-distended, normal bowel sounds, no palpable masses, no hepatomegaly, no splenomegaly, no bruit Skin: normal turgor Musculoskeletal: generalized weakness Psychiatric: normal affect, normal behavior, A&O x 3 Hosp A/P (1) Acute and chronic respiratory failure with hypoxia Code(s): J96.21 - ACUTE AND CHRONIC RESPIRATORY FAILURE WITH HYPOXIA Status: Acute (2) Atrial fibrillation with rapid ventricular response Code(s): I48.91 - UNSPECIFIED ATRIAL FIBRILLATION Status: Ruled-out (3) CHF (congestive heart failure) Code(s): I50.9 - HEART FAILURE, UNSPECIFIED Status: Acute Qualifiers: Heart failure type: systolic (4) Hyperglycemia Code(s): R73.9 - HYPERGLYCEMIA, UNSPECIFIED Status: Acute (5) Alkalosis Code(s): E87.3 - ALKALOSIS Status: Acute (6) COPD (chronic obstructive pulmonary disease) Status: Acute (7) Hypotension Status: Acute (8) Elevated troponin Code(s): R74.8 - ABNORMAL LEVELS OF OTHER SERUM ENZYMES Status: Acute (9) Macrocytic anemia Code(s): D53.9 - NUTRITIONAL ANEMIA, UNSPECIFIED Status: Acute (10) B12 deficiency Code(s): E53.8 - DEFICIENCY OF OTHER SPECIFIED B GROUP VITAMINS Status: Acute (11) Folate deficiency Code(s): E53.8 - DEFICIENCY OF OTHER SPECIFIED B GROUP VITAMINS Status: Acute (12) Atrial tachycardia Code(s): I47.1 - SUPRAVENTRICULAR TACHYCARDIA Status: Acute - Plan Feeling better. Euvolemic. At baseline supplemental oxygen. Cardizem, BB. ECHO with EF 55% and Mod TR. Continue anticoagulation. Glucose better with weaning steroids Resume heart healthy diet, mechanical soft. PRN nebs. Hypotension resolved. Appeared to rate related. Trops minimally elevated. Likely demand ischemia. B12 and Folate low. Oral replacement started. Moved to [facility] floor. PT. Rehab eval. Does not want to go back to [facility].
--- NOTE | 2019-06-30 15:26 | PDOC.CPN ---
- Subjective Date: 06/30/19 Time: 15:24 Interval history: She is doing well. No new issues. Remains in sinus. - Review of Systems General: denies: fever/chills, weight/appetite/sleep changes, night sweats, fatigue Respiratory: denies: cough, congestion, shortness of breath, exercise intolerance Cardiovascular: denies: chest pain, palpitation, edema, paroxysmal nocturnal dyspnea, orthopnea Gastrointestinal: denies: nausea, vomiting, diarrhea, constipation, abd pain, GI bleeding Musculoskeletal: denies: pain, tenderness, stiffness, swelling, arthritis/ arthralgias Neurological: denies: numbness, syncope, seizure, weakness - Objective Allergies/Adverse Reactions: Allergies Allergy/AdvReac Type Severity Reaction Status Date / Time No Known Allergies Allergy Unverified 06/27/19 19:30 Visit Medications: Current Medications Acetaminophen/Codeine Phosphate (Tylenol #3) 1 tab PO TID [facility] Last Admin: 06/30/19 08:11 Dose: 1 tab Albuterol/Ipratropium (Duoneb) 3 ml NEB [id number] PRN PRN Reason: SOB &/or Wheezing Last Admin: 06/29/19 18:51 Dose: 3 ml Aspirin (Ecotrin) 81 mg PO DAILY [facility] Last Admin: 06/30/19 08:12 Dose: 81 mg Budesonide (Pulmicort Neb Solution) 0.5 mg NEB BID-RT [facility] Last Admin: 06/30/19 06:30 Dose: 0.5 mg Cyanocobalamin (Vitamin B-12) 1,000 mcg IM [id number] [facility] Last Admin: 06/29/19 11:38 Dose: 1,000 mcg Dextrose/Water (Dextrose 50%) 25 gm SLOW IVP PRN PRN PRN Reason: Hypoglycemia Diltiazem HCl (Cardizem Sr) 60 mg PO BID [facility] Last Admin: 06/30/19 08:12 Dose: 60 mg Enoxaparin Sodium (Lovenox) 30 mg SC 0900 [facility] Last Admin: 06/30/19 08:12 Dose: 30 mg Folic Acid (Folvite) 1 mg PO DAILY [facility] Last Admin: 06/30/19 08:12 Dose: 1 mg Furosemide (Lasix) 40 mg PO DAILY-AC [facility] Last Admin: 06/30/19 08:12 Dose: 40 mg Glucagon (Glucagon) 1 mg IM PRN PRN PRN Reason: Hypoglycemia Dextrose/Water (D5w) 1,000 mls @ 0 mls/hr IV .Q0M PRN PRN Reason: Hypoglycemia Insulin Human Lispro (Humalog) 0 units SC .MODERATE SLIDING SC PRN; Protocol PRN Reason: MODERATE SLIDING SCALE Last Admin: 06/30/19 11:39 Dose: 6 unit Metoprolol Succinate (Toprol Xl) 25 mg PO DAILY [facility] Last Admin: 06/30/19 08:12 Dose: 25 mg Pantoprazole Sodium (Protonix) 20 mg PO DAILY [facility] Last Admin: 06/30/19 08:12 Dose: 20 mg Prednisone (Prednisone) 10 mg PO QAM-WM [facility] Last Admin: 06/30/19 08:11 Dose: 10 mg Sodium Chloride (Flush - Normal Saline) 10 ml IVF PRN PRN PRN Reason: Saline Flush Last Admin: 06/28/19 20:27 Dose: 10 ml Vital Signs & Weight: Vital Signs Temp Pulse Pulse Pulse Resp BP BP 06/30/19 11:11 98.6 F 84 25 H 06/30/19 10:39 68 81 133/60 159/64 H 06/30/19 08:11 06/30/19 07:13 99.2 F 88 22 H 06/30/19 06:30 76 18 BP Pulse Ox Pulse Ox Pulse Ox 06/30/19 11:11 122/60 94 L 06/30/19 10:39 95 93 L 06/30/19 08:11 92 L 06/30/19 07:13 119/58 L 92 L 06/30/19 06:30 99 Admit Weight 147 lb 11.355 oz Weight 150 lb 11.2 oz - Physical Exam General: alert & oriented x3, no apparent distress HEENT: mucus membranes moist Neck: supple neck Cardiac: regular rate and rhythm, no murmur Lungs: clear to auscultation Neuro: grossly intact Abdomen: active bowel sounds, soft, non-tender Skin: clear Musculoskeletal: normal range of motion - Labs Result Diagrams: 06/28/19 05:22 06/30/19 03:37 Troponin/CKMB Troponin I 0.063 ng/mL (< 0.028) H 06/28/19 09:16 - Telemetry Sinus rhythms and dysrhythmias: sinus rhythm - Assessment/Plan Assessment/Plan: 1. Atrial tachycardia 2. Acute on chronic systolic heart failure, improved. PLAN: - Continue home dose of PO lasix. - EP evaluation appreciated. - Continue diltiazem and BB. - Monitor on telemetry. - Will need placement for rehab most likely. - Will sign off. Please call with any questions,. - Follow up in the office in 1 month.
[2019-07-01] MEDS ORDERED: traMADol HCl 50 MG TAB PO SCH ×2 (03:15→11:30)
[2019-07-01] MEDS: Budesonide 0.5 MG/2 ML NEB NEB SCH ×2 (07:13→18:35)
[2019-07-01] MEDS: Aspirin 81 mg Enteric Coated Tablet PO SCH (10:04)
[2019-07-01] MEDS: Enoxaparin Sodium 30 MG/0.3 ML SYRINGE SC SCH (10:04)
[2019-07-01] MEDS: Diltiazem HCl SR 60 mg Capsule PO SCH ×2 (10:04→21:01)
[2019-07-01] MEDS: Pantoprazole 40 MG GRANULES PACKET PO SCH (10:04)
[2019-07-01] MEDS: predniSONE 20 MG TAB PO SCH (10:05)
[2019-07-01] MEDS: Furosemide 40 MG TAB PO SCH (10:05)
[2019-07-01] MEDS: Folic Acid 1 MG TAB PO SCH (10:05)
[2019-07-01] MEDS: Acetaminophen/Codeine 30-300mg Tablet PO SCH ×4 (10:06→23:39)
--- NOTE | 2019-07-01 13:12 | EKG ---
Test Reason : ER Blood Pressure : / mmHG Vent. Rate : 140 BPM Atrial Rate : 140 BPM P-R Int : 000 ms QRS Dur : 082 ms QT Int : 302 ms P-R-T Axes : 000 -01 105 degrees QTc Int : 461 ms Sinus tachycardia with short DC vs atrial flutter Nonspecific ST and T wave abnormality Abnormal ECG Confirmed by JJ MELÉNDEZ ([id number]), story editor NARA BLAKE ([id number]) on 07/01/2019 1:12:25 PM Referred By: ER Confirmed By:JJ MELÉNDEZ
[2019-07-01] MEDS: HumaLOG 300 UNITS/3 ML VIAL SC PRN ×2 (17:36→21:41)
[2019-07-01] MEDS: traMADol HCl 50 MG TAB PO PRN (17:36)
--- NOTE | 2019-07-01 18:51 | PDOC.HOSPP ---
- Subjective Encounter Date: 07/01/19 Encounter Time: 18:35 Subjective: f/u for atrial tachycardia remaining in SR and Acute/chronic diast CHF now improved. States feeling better overall. Stood with PT and walked short distance. - Objective Vital Signs & Weight: Vital Signs (12 hours) Temp Pulse Pulse Pulse Resp BP BP 07/01/19 18:35 71 16 07/01/19 16:45 98.1 F 79 20 07/01/19 11:17 78 90 149/65 H 120/57 L 07/01/19 08:00 98.4 F 79 20 07/01/19 07:13 75 14 BP Pulse Ox Pulse Ox Pulse Ox 07/01/19 18:35 97 07/01/19 16:45 130/67 96 07/01/19 11:17 93 L 94 L 07/01/19 08:00 124/60 95 07/01/19 07:13 100 Weight Admit Weight 147 lb 11.355 oz Weight 167 lb Most Recent Monitor Data Heart Rate from ECG 90 NIBP 126/48 NIBP BP-Mean 74 Respiration from ECG 18 SpO2 95 I&O: 06/30/19 07/01/19 07/02/19 06:59 06:59 06:59 Intake Total 1294 1540 Output Total 1350 200 Balance -56 1340 Result Diagrams: 06/28/19 05:22 06/30/19 03:37 Additional Labs: Accuchecks 07/01/19 07/01/19 06/30/19 16:28 05:15 20:14 POC Glucose 348 H 167 H 273 H EKG Reviewed by me: Yes (Tele - SR) Hospitalist ROS - Medication Medications: Active Medications Generic Name Dose Route Start Last Admin Trade Name Freq PRN Reason Stop Dose Admin Acetaminophen/Codeine Phosphate 2 tab 07/01/19 11:30 07/01/19 17:35 Tylenol #3 PO 2 tab Q6H WHITNEY Administration Albuterol/Ipratropium 3 ml 06/27/19 19:32 06/30/19 18:41 Duoneb NEB 3 ml [id number] PRN Administration SOB &/or Wheezing Aspirin 81 mg 06/28/19 09:00 07/01/19 10:04 Ecotrin PO 81 mg DAILY WHITNEY Administration Budesonide 0.5 mg 06/28/19 18:30 07/01/19 18:35 Pulmicort Neb Solution NEB 0.5 mg BID-RT WHITNEY Administration Cyanocobalamin 1,000 mcg 06/29/19 12:00 06/29/19 11:38 Vitamin B-12 IM 1,000 mcg [id number] WHITNEY Administration Diltiazem HCl 60 mg 06/28/19 09:00 07/01/19 10:04 Cardizem Sr PO 60 mg BID WHITNEY Administration Enoxaparin Sodium 30 mg 06/30/19 09:00 07/01/19 10:04 Lovenox SC 30 mg 09 WHITNEY Administration Folic Acid 1 mg 06/30/19 09:00 07/01/19 10:05 Folvite PO 1 mg DAILY WHITNEY Administration Furosemide 40 mg 06/30/19 07:30 07/01/19 10:05 Lasix PO 40 mg DAILY-AC WHITNEY Administration Insulin Human Lispro 0 units 06/29/19 17:39 07/01/19 17:36 Humalog SC 8 unit .MODERATE SLIDING SC PRN Administration MODERATE SLIDING SCALE Protocol Metoprolol Succinate 25 mg 06/30/19 09:00 07/01/19 10:05 Toprol Xl PO 25 mg DAILY WHITNEY Administration Pantoprazole Sodium 20 mg 06/28/19 09:00 07/01/19 10:04 Protonix PO 20 mg DAILY WHITNEY Administration Prednisone 10 mg 06/30/19 08:00 07/01/19 10:05 Prednisone PO 10 mg QAM-WM WHITNEY Administration Sodium Chloride 10 ml 06/27/19 19:32 06/28/19 20:27 Flush - Normal Saline IVF 10 ml PRN PRN Administration Saline Flush Tramadol HCl 50 mg 07/01/19 11:23 07/01/19 17:36 Ultram PO 50 mg Q6H PRN Administration Moderate/Severe Pain (4-10) - Exam General Appearance: NAD, awake alert Eye: PERRL, anicteric sclera ENT: normocephalic atraumatic, no oropharyngeal lesions Neck: supple, symmetric, no JVD, no thyromegaly, no lymphadenopathy Heart: RRR, no gallops, no rubs, normal peripheral pulses Respiratory: no rales, no ronchi, normal chest expansion Respiratory - other findings: diminished in bases Gastrointestinal: soft, non-tender, non-distended, normal bowel sounds, no palpable masses Extremities: no cyanosis, no edema Skin: normal turgor, no lesions Neurological: cranial nerve grossly intact, no new deficit Musculoskeletal: normal tone Psychiatric: normal affect, A&O x 3 Hosp A/P (1) Acute on chronic diastolic (congestive) heart failure Code(s): I50.33 - ACUTE ON CHRONIC DIASTOLIC (CONGESTIVE) HEART FAILURE Status : Acute Plan: Improved, continue Lasix 40mg po daily (2) Acute and chronic respiratory failure with hypoxia Code(s): J96.21 - ACUTE AND CHRONIC RESPIRATORY FAILURE WITH HYPOXIA Status: Acute Plan: Baseline O2 requirement at 3-4L/min [place], pulmonary supportive measures (3) Atrial tachycardia Code(s): I47.1 - SUPRAVENTRICULAR TACHYCARDIA Status: Acute Plan: Current SR, continue Diltiazem/Metoprolol (4) Physical deconditioning Code(s): R53.81 - OTHER MALAISE Status: Chronic Plan: PT/OT for mobilization, SNF options pending (5) Hyperglycemia Code(s): R73.9 - HYPERGLYCEMIA, UNSPECIFIED Status: Acute Plan: Labile glucose due to Prednisone - Plan PT/OT, social media community manager, respiratory therapy, out of bed/ambulate, DVT proph w/ SCDs Stable currently Continue Diltiazem/Metoprolol Continue pulmonary support CM for SNF options Continue Pulmicort/Duonebs
[2019-07-02] MEDS: Acetaminophen/Codeine 30-300mg Tablet PO SCH ×5 (05:36→23:33)
[2019-07-02] MEDS: Budesonide 0.5 MG/2 ML NEB NEB SCH ×2 (07:06→18:19)
[2019-07-02] MEDS: Diltiazem HCl SR 60 mg Capsule PO SCH ×2 (09:35→19:45)
[2019-07-02] MEDS: Enoxaparin Sodium 30 MG/0.3 ML SYRINGE SC SCH (09:35)
[2019-07-02] MEDS: Furosemide 40 MG TAB PO SCH (09:36)
[2019-07-02] MEDS: Aspirin 81 mg Enteric Coated Tablet PO SCH (09:36)
[2019-07-02] MEDS: predniSONE 20 MG TAB PO SCH (09:36)
[2019-07-02] MEDS: Pantoprazole 40 MG GRANULES PACKET PO SCH (09:36)
[2019-07-02] MEDS: Folic Acid 1 MG TAB PO SCH (09:37)
--- NOTE | 2019-07-02 12:57 | PDOC.HOSPP ---
- Subjective Encounter Date: 07/02/19 Encounter Time: 12:50 Subjective: f/u for atrial tachycardia now in SR and diastolic CHF. Feels ok overall. Standing with PT at bedside. - Objective Vital Signs & Weight: Vital Signs (12 hours) Temp Pulse Pulse Pulse Resp BP BP 07/02/19 10:01 90 72 162/70 H 135/61 07/02/19 08:00 98.3 F 82 18 07/02/19 07:06 79 12 07/02/19 04:00 97.9 F 100 16 BP Pulse Ox Pulse Ox Pulse Ox 07/02/19 10:01 93 L 96 07/02/19 08:00 125/58 L 98 07/02/19 07:06 100 07/02/19 04:00 139/82 93 L Weight Admit Weight 147 lb 11.355 oz Weight 160 lb Most Recent Monitor Data Heart Rate from ECG 90 NIBP 126/48 NIBP BP-Mean 74 Respiration from ECG 18 SpO2 95 I&O: 07/01/19 07/02/19 07/03/19 06:59 06:59 06:59 Intake Total 1540 2040 180 Output Total 200 1300 Balance 1340 740 180 Result Diagrams: 06/28/19 05:22 06/30/19 03:37 Additional Labs: Accuchecks 07/02/19 07/02/19 07/01/19 10:52 05:29 20:29 POC Glucose 314 H 221 H 276 H 07/01/19 16:28 POC Glucose 348 H EKG Reviewed by me: Yes (Tele - SR) Hospitalist ROS - Medication Medications: Active Medications Generic Name Dose Route Start Last Admin Trade Name Freq PRN Reason Stop Dose Admin Acetaminophen/Codeine Phosphate 2 tab 07/01/19 11:30 07/02/19 11:36 Tylenol #3 PO Not Given Q6H WHITNEY Albuterol/Ipratropium 3 ml 06/27/19 19:32 06/30/19 18:41 Duoneb NEB 3 ml [id number] PRN Administration SOB &/or Wheezing Aspirin 81 mg 06/28/19 09:00 07/02/19 09:36 Ecotrin PO 81 mg DAILY WHITNEY Administration Budesonide 0.5 mg 06/28/19 18:30 07/02/19 07:06 Pulmicort Neb Solution NEB 0.5 mg BID-RT WHITNEY Administration Cyanocobalamin 1,000 mcg 06/29/19 12:00 06/29/19 11:38 Vitamin B-12 IM 1,000 mcg [id number] WHITNEY Administration Diltiazem HCl 60 mg 06/28/19 09:00 07/02/19 09:35 Cardizem Sr PO 60 mg BID WHITNEY Administration Enoxaparin Sodium 30 mg 06/30/19 09:00 07/02/19 09:35 Lovenox SC 30 mg 0900 WHITNEY Administration Folic Acid 1 mg 06/30/19 09:00 07/02/19 09:37 Folvite PO 1 mg DAILY WHITNEY Administration Furosemide 40 mg 06/30/19 07:30 07/02/19 09:36 Lasix PO 40 mg DAILY-AC WHITNEY Administration Insulin Human Lispro 0 units 06/29/19 17:39 07/01/19 17:36 Humalog SC 8 unit .MODERATE SLIDING SC PRN Administration MODERATE SLIDING SCALE Protocol Insulin Human Lispro 0 units 07/01/19 21:13 07/01/19 21:41 Humalog SC 3 units .BEDTIME SLIDING SC PRN Administration Bedtime Correctional Scale Metoprolol Succinate 25 mg 06/30/19 09:00 07/02/19 09:37 Toprol Xl PO 25 mg DAILY WHITNEY Administration Pantoprazole Sodium 20 mg 06/28/19 09:00 07/02/19 09:36 Protonix PO 20 mg DAILY WHITNEY Administration Prednisone 10 mg 06/30/19 08:00 07/02/19 09:36 Prednisone PO 10 mg QAM-WM WHITNEY Administration Sodium Chloride 10 ml 06/27/19 19:32 06/28/19 20:27 Flush - Normal Saline IVF 10 ml PRN PRN Administration Saline Flush Tramadol HCl 50 mg 07/01/19 11:23 07/01/19 17:36 Ultram PO 50 mg Q6H PRN Administration Moderate/Severe Pain (4-10) - Exam General Appearance: NAD, awake alert Eye: PERRL, anicteric sclera ENT: normocephalic atraumatic, no oropharyngeal lesions Neck: supple, symmetric, no JVD, no thyromegaly, no lymphadenopathy Heart: RRR, no gallops, no rubs, normal peripheral pulses Respiratory: CTAB, no rales Respiratory - other findings: diminished bilat Gastrointestinal: soft, non-tender, non-distended, normal bowel sounds Extremities: no cyanosis, no clubbing, no edema Skin: normal turgor Neurological: cranial nerve grossly intact, no new deficit Musculoskeletal: normal tone, generalized weakness Psychiatric: normal affect, A&O x 3 Hosp A/P (1) Acute on chronic diastolic (congestive) heart failure Code(s): I50.33 - ACUTE ON CHRONIC DIASTOLIC (CONGESTIVE) HEART FAILURE Status : Acute Plan: Continue Lasix 40mg po daily (2) Acute and chronic respiratory failure with hypoxia Code(s): J96.21 - ACUTE AND CHRONIC RESPIRATORY FAILURE WITH HYPOXIA Status: Acute Plan: Continue O2 @ 4L/min NC, baseline (3) Atrial tachycardia Code(s): I47.1 - SUPRAVENTRICULAR TACHYCARDIA Status: Acute Plan: SR currently, continue Metoprolol/Diltiazem (4) Physical deconditioning Code(s): R53.81 - OTHER MALAISE Status: Chronic Plan: PT/OT for mobilization, SNF options (5) Hyperglycemia Code(s): R73.9 - HYPERGLYCEMIA, UNSPECIFIED Status: Acute - Plan PT/OT, case management social worker, respiratory therapy, out of bed/ambulate, DVT proph w/ SCDs Stable currently Continue Diltiazem/Metoprolol Continue pulmonary support CM for SNF options, willing to consider [place] Continue Pulmicort/Duonebs Likely transfer to SNF in 24h
[2019-07-02] MEDS: HumaLOG 300 UNITS/3 ML VIAL SC PRN ×2 (13:01→18:09)
[2019-07-02] MEDS: Cepastat Lozenges 1 LOZ PO PRN ×2 (19:45→21:15)
[2019-07-03] MEDS: Acetaminophen/Codeine 30-300mg Tablet PO SCH ×4 (05:46→20:21)
[2019-07-03] MEDS: Budesonide 0.5 MG/2 ML NEB NEB SCH ×2 (07:18→18:46)
[2019-07-03] MEDS: predniSONE 20 MG TAB PO SCH (08:19)
[2019-07-03] MEDS: Furosemide 40 MG TAB PO SCH (08:19)
[2019-07-03] MEDS: Folic Acid 1 MG TAB PO SCH (08:22)
[2019-07-03] MEDS: Enoxaparin Sodium 30 MG/0.3 ML SYRINGE SC SCH (08:22)
[2019-07-03] MEDS: Diltiazem HCl SR 60 mg Capsule PO SCH ×2 (08:22→20:22)
[2019-07-03] MEDS: Pantoprazole 40 MG GRANULES PACKET PO SCH (08:32)
[2019-07-03] MEDS: Aspirin 81 mg Enteric Coated Tablet PO SCH (08:39)
[2019-07-03] MEDS: HumaLOG 300 UNITS/3 ML VIAL SC PRN ×3 (11:41→20:20)
[2019-07-03] MEDS: traMADol HCl 50 MG TAB PO PRN (14:02)
--- NOTE | 2019-07-03 18:27 | PDOC.HOSPP ---
- Subjective Encounter Date: 07/03/19 Encounter Time: 15:00 Subjective: f/u for atrial tachycardia now SR and diast CHF. States feeling ok overall. - Objective Vital Signs & Weight: Vital Signs (12 hours) Temp Pulse Pulse Pulse Resp BP BP 07/03/19 15:45 97.3 F L 76 16 07/03/19 11:50 97.8 F 76 18 07/03/19 09:55 84 85 142/73 H 127/59 L 07/03/19 07:27 97.3 F L 75 16 07/03/19 07:19 07/03/19 07:16 79 16 BP Pulse Ox Pulse Ox Pulse Ox 07/03/19 15:45 132/62 98 07/03/19 11:50 115/57 L 97 07/03/19 09:55 90 L 93 L 07/03/19 07:27 124/60 97 07/03/19 07:19 97 07/03/19 07:16 97 Weight Admit Weight 147 lb 11.355 oz Weight 151 lb 3.2 oz Most Recent Monitor Data Heart Rate from ECG 90 NIBP 126/48 NIBP BP-Mean 74 Respiration from ECG 18 SpO2 95 I&O: 07/02/19 07/03/19 07/04/19 06:59 06:59 06:59 Intake Total 2040 1320 Output Total 1300 Balance 740 1320 Result Diagrams: 06/28/19 05:22 06/30/19 03:37 Additional Labs: Accuchecks 07/03/19 07/03/19 16:46 11:15 POC Glucose 325 H 385 H EKG Reviewed by me: Yes (Tele - SR) Hospitalist ROS - Medication Medications: Active Medications Generic Name Dose Route Start Last Admin Trade Name Freq PRN Reason Stop Dose Admin Acetaminophen/Codeine Phosphate 2 tab 07/03/19 14:30 07/03/19 15:57 Tylenol #3 PO 2 tab 0230,0830,1430,2030 WHITNEY Administration Albuterol/Ipratropium 3 ml 06/27/19 19:32 07/03/19 07:16 Duoneb NEB 3 ml [id number] PRN Administration SOB &/or Wheezing Aspirin 81 mg 06/28/19 09:00 07/03/19 08:39 Ecotrin PO 81 mg DAILY WHITNEY Administration Budesonide 0.5 mg 06/28/19 18:30 07/03/19 07:18 Pulmicort Neb Solution NEB 0.5 mg BID-RT WHITNEY Administration Cyanocobalamin 1,000 mcg 06/29/19 12:00 06/29/19 11:38 Vitamin B-12 IM 1,000 mcg [id number] WHITNEY Administration Diltiazem HCl 60 mg 06/28/19 09:00 07/03/19 08:22 Cardizem Sr PO 60 mg BID WHITNEY Administration Enoxaparin Sodium 30 mg 06/30/19 09:00 07/03/19 08:22 Lovenox SC 30 mg 09 WHITNEY Administration Folic Acid 1 mg 06/30/19 09:00 07/03/19 08:22 Folvite PO 1 mg DAILY WHITNEY Administration Furosemide 40 mg 06/30/19 07:30 07/03/19 08:19 Lasix PO 40 mg DAILY-AC WHITNEY Administration Insulin Human Lispro 0 units 06/29/19 17:39 07/03/19 17:23 Humalog SC 8 unit .MODERATE SLIDING SC PRN Administration MODERATE SLIDING SCALE Protocol Insulin Human Lispro 0 units 07/01/19 21:13 07/01/19 21:41 Humalog SC 3 units .BEDTIME SLIDING SC PRN Administration Bedtime Correctional Scale Metoprolol Succinate 25 mg 06/30/19 09:00 07/03/19 08:22 Toprol Xl PO 25 mg DAILY WHITNEY Administration Pantoprazole Sodium 20 mg 06/28/19 09:00 07/03/19 08:32 Protonix PO 20 mg DAILY WHITNEY Administration Prednisone 10 mg 06/30/19 08:00 07/03/19 08:19 Prednisone PO 10 mg QAM-WM WHITNEY Administration Sodium Chloride 10 ml 06/27/19 19:32 07/03/19 08:30 Flush - Normal Saline IVF 10 ml PRN PRN Administration Saline Flush Throat Lozenges 1 jeny 07/02/19 18:10 07/02/19 21:15 Cepastat Lozenges PO 1 jeny Q2H PRN Administration Sore Throat Tramadol HCl 50 mg 07/01/19 11:23 07/03/19 14:02 Ultram PO 50 mg Q6H PRN Administration Moderate/Severe Pain (4-10) - Exam General Appearance: NAD, awake alert Eye: PERRL, anicteric sclera ENT: normocephalic atraumatic, no oropharyngeal lesions Neck: supple, symmetric, no JVD, no thyromegaly, no lymphadenopathy Heart: RRR, no murmur, no gallops, no rubs, normal peripheral pulses Respiratory: rhonchi Respiratory - other findings: diminished in bases bilat Gastrointestinal: soft, non-tender, non-distended, normal bowel sounds, no palpable masses Extremities: no cyanosis, no clubbing, no edema Skin: normal turgor, no lesions Neurological: cranial nerve grossly intact, no new deficit Musculoskeletal: normal tone, generalized weakness Psychiatric: normal affect, A&O x 3 Hosp A/P (1) Acute on chronic diastolic (congestive) heart failure Code(s): I50.33 - ACUTE ON CHRONIC DIASTOLIC (CONGESTIVE) HEART FAILURE Status : Acute Plan: Continue Lasix daily, stabilizing (2) Acute and chronic respiratory failure with hypoxia Code(s): J96.21 - ACUTE AND CHRONIC RESPIRATORY FAILURE WITH HYPOXIA Status: Acute Plan: Baseline O2 4L/min NC (3) Atrial tachycardia Code(s): I47.1 - SUPRAVENTRICULAR TACHYCARDIA Status: Acute Plan: Current SR, continue Metoprolol/Diltiazem (4) Physical deconditioning Code(s): R53.81 - OTHER MALAISE Status: Chronic Plan: PT/OT for mobilization (5) Hyperglycemia Code(s): R73.9 - HYPERGLYCEMIA, UNSPECIFIED Status: Acute Plan: Labile due to Prednisone - Plan PT/OT, social work therapist, respiratory therapy, out of bed/ambulate, DVT proph w/ SCDs Stable currently Continue Diltiazem/Metoprolol Continue pulmonary support CM for SNF options Continue Pulmicort/Duonebs Likely transfer to SNF in 24h
[2019-07-04] MEDS: Acetaminophen/Codeine 30-300mg Tablet PO SCH ×3 (02:18→14:01)
[2019-07-04] MEDS: Budesonide 0.5 MG/2 ML NEB NEB SCH (07:21)
[2019-07-04] MEDS: predniSONE 20 MG TAB PO SCH (08:28)
[2019-07-04] MEDS: Aspirin 81 mg Enteric Coated Tablet PO SCH (08:28)
[2019-07-04] MEDS: Furosemide 40 MG TAB PO SCH (08:29)
[2019-07-04] MEDS: Folic Acid 1 MG TAB PO SCH (08:33)
[2019-07-04] MEDS: Pantoprazole 40 MG GRANULES PACKET PO SCH (08:33)
[2019-07-04] MEDS: Diltiazem HCl SR 60 mg Capsule PO SCH (08:33)
[2019-07-04] MEDS: Enoxaparin Sodium 30 MG/0.3 ML SYRINGE SC SCH (08:34)
[2019-07-04] MEDS: HumaLOG 300 UNITS/3 ML VIAL SC PRN (09:26)
[2019-07-04 12:13] VITALS: BP 124/58; TEMP 98.7
--- NOTE | 2019-07-05 01:41 | DIS ---
DATE OF ADMISSION: 06/27/2019 DATE OF DISCHARGE: 07/04/2019 DISCHARGE DIAGNOSES: 1. Acute on chronic diastolic congestive heart failure. Stable. 2. Acute on chronic hypoxic respiratory failure with baseline oxygen level at 4 L/minute by nasal cannula. 3. Atrial tachycardia, transient with current sinus mechanism. 4. Deconditioning. 5. Hyperglycemia, likely new onset diabetes mellitus in the context of chronic prednisone therapy. CONSULTATIONS: 1. Dr. Bryant with Cardiology Service. 2. Dr. Jose M Way with Electrophysiology Service. 3. Dr. Rodriguez with Pulmonology Service. PERTINENT LABORATORY AND X-RAY FINDINGS: Carbon dioxide level ranged between 36 to 42. Hemoglobin A1c 7.7. Troponin I ranged between 0.023 to 0.063. Vitamin B12 level 170, folate 6.6. CBC showed a hemoglobin of 11.3, hematocrit 35, MCV 100. 2D transthoracic echocardiogram dated 06/28/2019, showed ejection fraction of 55% to 60%. Moderate tricuspid regurgitation noted. Portable chest x-ray dated 06/30/2019, showed bilateral pulmonary edema. HOSPITAL COURSE: The patient was initially admitted to the telemetry unit after presenting with increased shortness of breath and generalized weakness. The patient underwent extensive evaluation including telemetry monitoring showing evidence of atrial tachycardia. The patient was initially placed on Cardizem infusion and given subcutaneous Lovenox. The patient was evaluated by the Cardiology Service due to the atrial arrhythmia with recommendations to continue rate control measures including diltiazem with additional beta-westley therapy with metoprolol. The patient was evaluated by the Electrophysiology Service, however no specific intervention was recommended during this hospital course as the patient converted to sinus mechanism and remained in sinus mechanism for the remainder of the hospital course. The patient was not recommended for ongoing anticoagulation after initially receiving subcutaneous Lovenox. 2D transthoracic echocardiogram was performed showing a preserved ejection fraction of 55% to 60% and moderate tricuspid regurgitation. No wall motion abnormality was detected. The patient was also evaluated for general weakness and was deemed an appropriate candidate for ongoing skilled care including physical and occupational therapy at a prison facility. The patient clinically stabilized and transitioned to her baseline oxygen requirement of 4 L/minute by nasal cannula. The patient tolerated regular oral intake and was voiding appropriately during the hospital course. Overall, the patient did remain clinically stable through the hospital course with stable vital signs at the time of discharge. I have examined the patient at the time of discharge and discussed followup instructions. The patient verbalized understanding and in agreement, ready for discharge on 07/04/2019. DISCHARGE MEDICATIONS: 1. Cardizem 60 mg p.o. b.i.d. 2. Metoprolol-XL 25 mg p.o. daily. 3. Tylenol No.3 300 mg/30 mg one tablet p.o. t.i.d. p.r.n. 4. Budesonide 0.5 mg inhaled b.i.d. 5. DuoNeb 3 mL nebulized q.6 hours p.r.n. 6. Protonix 20 mg p.o. daily. 7. Enteric-coated aspirin 81 mg p.o. daily. 8. Folic acid 1 mg p.o. daily. 9. Lasix 40 mg p.o. daily. 10. Metformin 500 mg p.o. b.i.d., new prescription for new onset diabetes mellitus. 11. Prednisone 10 mg p.o. q.a.m. FOLLOWUP: The patient may follow up with her primary care provider, Dr. Ashley Main after discharge from [facility]. The patient will follow up with Dr. Bryant within 4 weeks of discharge. CONDITION ON DISCHARGE: Stable. ACTIVITY: Ad jose m. Rolling walker with standby/contact guard assistance with high fall risk precautions. DIET: ADA and heart healthy. CODE STATUS: Do not attempt resuscitation. DISPOSITION: Discharged to [place], [place] on 07/04/2019. TIME SPENT: Total time preparing and coordinating discharge, 35 minutes. Job ID: [id number] MTDD
== END 2019-07-04 14:35 | DRG 291 ==
LOC: ERS 17:51 → IMCU/EMU 21:55 → 2NO 06-29 10:47
PROVIDERS: ADMIT Internal Medicine; ATTEND Internal Medicine
DX: I11.0 Hypertensive heart disease with heart failure (principal); J96.21 Acute and chronic respiratory failure with hypoxia; I47.1 Supraventricular tachycardia; E87.3 Alkalosis; I24.8 Other forms of acute ischemic heart disease; E11.65 Type 2 diabetes mellitus with hyperglycemia; D52.9 Folate deficiency anemia, unspecified; J44.9 Chronic obstructive pulmonary disease, unspecified; I48.91 Unspecified atrial fibrillation; I95.9 Hypotension, unspecified; I50.43 Acute on chronic combined systolic (congestive) and diastolic (congestive) heart failure; G89.29 Other chronic pain; Z96.1 Presence of intraocular lens; R53.81 Other malaise; Z79.4 Long term (current) use of insulin; Z79.01 Long term (current) use of anticoagulants; Z87.891 Personal history of nicotine dependence; Z98.42 Cataract extraction status, left eye; Z98.41 Cataract extraction status, right eye
CPT/HCPCS: 36415; 36416; 71045; 80048; 80053; 81003; 82607; 82746; 83036; 83735; 84484; 85025; 93005; 93306; 93798; 94640; 96374; A4218; J1120; J1160; J1650; J1940; J3420; J7512; J7620; J7626

== ENCOUNTER 2019-08-06 07:44 | Inpatient (IN) | payer MEDICARE ==
[2019-08-06] MEDS ORDERED: Albuterol Sulfate 2.5 mg/3 ml Neb ONE (07:54)
--- NOTE | 2019-08-06 08:03 | RAD ---
RADIOGRAPH CHEST 1 VIEW: DATE: 08/06/2019 HISTORY: 79-year-old female with dyspnea FINDINGS: There are no airspace densities, pulmonary edema, pneumothorax, or cardiomegaly. The lateral costophr enic angles are sharp. Small focal subsegmental atelectasis at left base. IMPRESSION: No acute cardiopulmonary findings.
[2019-08-06 08:08] LABS: Actual Bicarbonate (HCO3a) 40.9 mEq/L (22-28); Analyzer IN Cardio ER; Base Excess (BEa) 12.3 mEq/L (-2.0 to +3.0); Calcium, Ionized 1.13 mmol/L (1.12-1.30); Carboxyhemoglobin (COHb) 0.7 gm% (0.0-3.0); Hemoglobin (Hb) 11.9 g/dL (12.0-16.0); O2 Tension (PaO2) 99.8 mmHg (> 70.0); Potassium - ABG Lab 3.55 mmol/L (3.70-5.30); pH, Arterial 7.35 (7.35-7.45)
[2019-08-06 08:09] LABS: ALV-art Gradient 517.575 (0-20); CO2 Tension 76.5 mmHg (35.0-45.0); Puncture Site LRA
[2019-08-06] MEDS ORDERED: Dexamethasone 10 MG/ML VIAL ONE (08:29)
[2019-08-06] MEDS ORDERED: Magnesium 2 GM/50 ML BAG (IN WATER) ONE (08:29)
[2019-08-06 08:35] LABS: #Lymphocytes 0.6 thou/uL (1.20-3.40); #Monocytes 0.8 thou/uL (0.11-0.59); #Neutrophils 13.9 thou/uL (1.40-6.50); %Basophils 0.3 % (0.0-1.0); %Eosinophils 0.3 % (0.0-10.0); %Lymphocytes 3.8 % (21.0-51.0); %Monocytes 5.5 % (0.0-10.0); %Neutrophils 90.1 % (42.0-75.0); Mean Corpuscular HGB CONC 31.7 g/dL (32.0-36.0); Mean Corpuscular Volume 97.8 fL (78.0-98.0); Mean Platelet Volume 8.2 fL (7.4-10.4); Platelet Count 241 thou/uL (130-400); RBC Distribution Width 11.7 % (11.5-14.5); Red Blood Cell (RBC) Count 3.86 mill/uL (4.20-5.40); White Blood Cell (WBC) Count 15.4 thou/uL (4.8-10.8)
[2019-08-06 08:54] LABS: ALT (SGPT) 7 U/L (8-55); AST (SGOT) 6 U/L (5-34); Albumin 3.9 g/dL (3.4-4.8); Alkaline Phosphatase 65 U/L (40-110); Anion Gap 17 mmol/L (10-20); BUN (Urea Nitrogen) 7 mg/dL (9.8-20.1); Bilirubin, Total 0.4 mg/dL (0.2-1.2); CK (CPK) 13 U/L (29-168); Calc. Creatinine Clearance 0 mL/min (70-130); Calcium 9.1 mg/dL (7.8-10.44); Carbon Dioxide 37 mmol/L (23-31); Chloride 86 mmol/L (98-107); Estimated GFR-MDRD Greater than 90; Globulin 3.1 g/dL (2.4-3.5); Glucose 210 mg/dL (83-110); Lipase 4 U/L (8-78); Potassium 3.6 mmol/L (3.5-5.1); Sodium 136 mmol/L (136-145)
[2019-08-06] MEDS ORDERED: HYDROcodone/Acetaminophen 10/325 mg Tablet ONE (09:06)
--- NOTE | 2019-08-06 09:47 | CT ---
CT ANGIOGRAM THORAX WITH CONTRAST: (CTA pulmonary angiogram) DATE: 08/06/2019 HISTORY: 79-year-old female with dyspnea and hypoxemia. COMPARISON: 06/27/2019. TECHNIQUE: IV injection of iodinated contrast. Scan acquisition timing attempted to coincide with iodinated contrast bolus reaching maximal density in pulmonary arteries. 3-D MIP reconstructions. FINDINGS: Diffuse centrilobular emphysema bilaterally. Moderately deep indentation upon the posterior aspect of trachea by the esophagus, resulting in moder ate narrowing. Bilateral mainstem bronchi are patent and clear. Previously, there was multiloculated small left pleural effusion. This has decreased, and currently t here is a very small left pleural effusion with adjacent multiple small focal pleural-based airspace opacities which could be atelectasis, less likely to be pneumonia. The previously demonstrated small right pleural effusion has resolved, along with almost complete res olution of small multifocal airspace densities abutting the pleural effusion in right lower lobe. No pneumothorax. No pericardial effusion. Atherosclerosis, but no aneurysm or dissection, involving thoracic aorta. Nonspecific multiple mildly enlarged mediastinal lymph nodes. Old compression fracture of one of the midthoracic vertebral bodies. IMPRESSION: 1) moderate centrilobular emphysema. 2) no pulmonary thromboembolism identified. 3) interval decrease in left pleural effusion and interval resolution of right pleural effusion. 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
[2019-08-06] MEDS ORDERED: ISOVUE-370 76%-LOCM 1 ML ONE (09:57)
[2019-08-06] MEDS ORDERED: hydrALAZINE 20 MG/ML VIAL ONE (11:36)
[2019-08-06] MEDS ORDERED: Ondansetron PF 4 MG/2 ML Vial IVP PRN (11:48)
[2019-08-06] MEDS ORDERED: Bisacodyl 10 MG SUPP PR PRN (11:48)
[2019-08-06] MEDS ORDERED: Dextrose 5% in Water 1,000 ML IV PRN (11:48)
[2019-08-06] MEDS ORDERED: Dextrose 50% Abboject 50 ML SYRINGE SLOW IVP PRN (11:48)
[2019-08-06] MEDS ORDERED: Acetaminophen 325 MG TAB PO PRN (11:48)
[2019-08-06] MEDS ORDERED: Senokot S 8.6-50 MG TAB PO PRN (11:48)
[2019-08-06 13:08] LABS: Lactic Acid 1.8 mmol/L (0.5-2.2)
[2019-08-06] MEDS ORDERED: methylPREDNISolone Sod Succ 40 MG VIAL ONE (13:39)
[2019-08-06] MEDS: Sodium Chloride 0.9% 1,000 ML IV SCH (13:42)
[2019-08-06] MEDS: methylPREDNISolone Sod Succ 40 MG VIAL IVP SCH ×2 (13:42→17:23)
[2019-08-06] MEDS ORDERED: Acetaminophen/Codeine 30-300mg Tablet PO PRN (15:10)
[2019-08-06] MEDS: Acetaminophen/Codeine 30-300mg Tablet PO PRN ×2 (16:13→21:49)
[2019-08-06 16:15] VITALS: BMI 25.5
[2019-08-06] MEDS: metFORMIN 500 MG TAB PO SCH (16:15)
[2019-08-06] MEDS: HumaLOG 300 UNITS/3 ML VIAL SC PRN ×2 (17:21→21:47)
--- NOTE | 2019-08-06 17:24 | HP ---
REASON FOR ADMISSION: Acute respiratory failure with hypoxia, COPD exacerbation. HISTORY OF PRESENTING ILLNESS: Please note, the patient was sent over from longterm for complaints of shortness of breath. She was apparently saturating 83% at the longterm. She was placed on CPAP by EMS and was brought here. On arrival in the ER, the patient has had blood gas done, which shows respiratory acidosis with elevated CO2. The patient's respiratory rate was 28 per minute. She was placed on BiPAP and is currently saturating 94%. The patient states she got worse last night with shortness of breath and wheezing. She could not sleep and had to sit up the whole night. No history of fever as such. Her , who is also power of research attorney, is here at bedside. Currently, has no complaints of chest pain or palpitation. PAST MEDICAL AND SURGICAL HISTORY: History of COPD/emphysema; history of CHF; cataract surgery; chronic respiratory failure, on oxygen; coronary artery disease; history of paroxysmal atrial fibrillation; low back pain; hypertension; chronic anemia; generalized weakness; history of dysphagia; major depressive disorder. Echo done on 06/28/2019 showed EF of 55% to 60%. RV pressures were elevated on that. PERSONAL HISTORY: Does not abuse alcohol or drugs. No history of smoking. She is currently a longterm resident. FAMILY HISTORY: Both parents in their 90s per . CURRENT MEDICATIONS: Per longterm records, the patient is on; 1. Aspirin 81 mg p.o. daily. 2. Budesonide inhaler twice daily. 3. Colace 100 mg twice daily. 4. Folic acid 1 mg daily. 5. Lasix 40 mg daily. 6. DuoNeb q.6 hourly p.r.n. 7. Metformin 500 mg p.o. twice daily. 8. Toprol-XL 25 mg p.o. daily. 9. Multivitamin one tablet once daily. 10. Omeprazole 20 mg daily. 11. Prednisone 10 mg daily. It is unclear if this is on a tapering dose, but appears to be a scheduled dose at the longterm, which was started on July 05. CODE STATUS: The code status is do not attempt to resuscitate. This was confirmed with and the patient. is her power of research attorney. REVIEW OF SYSTEMS: CONSTITUTIONAL: Negative for weight loss or gain, ability to conduct usual activities. SKIN: Negative for rash, itching. EYES: Negative for double vision, pain. ENT/MOUTH: Negative for nose bleeding, neck stiffness, pain, tenderness. CARDIOVASCULAR: Negative for palpitations, dyspnea on exertion, orthopnea. RESPIRATORY: Negative for shortness of breath, wheezing, cough, hemoptysis, fever or night sweats. GASTROINTESTINAL: Negative for poor appetite, abdominal pain, heartburn, nausea , vomiting, constipation, or diarrhea. GENITOURINARY: Negative for urgency, frequency, dysuria, nocturia. MUSCULOSKELETAL: Negative for pain, swelling. NEUROLOGIC/PSYCHIATRIC: Negative for anxiety, depression. ALLERGY/IMMUNOLOGIC: Negative for skin rash, bleeding tendency. PHYSICAL EXAMINATION: GENERAL: The patient is a 79-year-old female, who is currently in moderate respiratory distress. VITAL SIGNS: Blood pressure 136/74, pulse 120 per minute, respiratory rate 28 per minute, temperature 98.2 degrees Fahrenheit, saturating 95% on BiPAP. NECK: Supple. No elevated JVD. HEENT: Eyes; extraocular muscles intact. Pupils reacting to light. Oral cavity; mucous membranes are dry. No exudates or congestion. CARDIOVASCULAR: S1 and S2 heard. Regular rhythm. RESPIRATORY: Air entry 1+ bilateral. Scattered wheezes plus bilateral, rhonchi plus bilateral. ABDOMEN: Soft. Bowel sounds heard. No tenderness, rigidity, or guarding. EXTREMITIES: No peripheral edema or calf tenderness. VASCULAR: Peripheral pulses 1+ bilateral. No ischemic ulcerations or gangrene. CENTRAL NERVOUS SYSTEM: No gross focal deficits noted. The patient is lethargic, but responds well to verbal questions. PSYCHIATRIC: The patient's mood is a bit anxious, otherwise no hallucinations or delusions. LABORATORY DATA: Influenza A and B antigens are negative. CT angio chest done, shows moderate centrilobular emphysema. No evidence of pulmonary embolus. There is interval decrease in left pleural effusion and resolution of right pleural effusion. There is tracheal stenosis due to tracheal malacia. Serum bicarb is 37, BUN 7, creatinine 0.6, glucose 210. Lactic acid 2.3. Liver enzymes within normal limits. Albumin is 3.9. BNP 71. Troponin I less than 0.01. Lipase is 4. Blood gas done, shows a pH of 7.35, pCO2 of 76, pO2 of 99, bicarb is 40. White count of 15, H and H of 12 and 37, platelet count 241 with 90% neutrophils. EKG done, shows sinus tach at 128 beats per minute. It is a full quality EKG. Likely, the patient is on BiPAP and is a bit shaking. CLINICAL IMPRESSION AND PLAN: The patient will be admitted to [facility] for acute respiratory failure with hypoxia, acute on chronic obstructive pulmonary disease exacerbation. We will place her on Solu-Medrol 20 mg IV q.6 hourly along with DuoNeb q.6 hourly, normal saline at 60 mL/h, and empiric Augmentin for now. We will also continue her aspirin, Pulmicort, Cardizem, Colace, folic acid, Lasix, metformin, and Toprol-XL as before. Pulmonary consultation with Dr. Mcintosh will be requested. Current rhythm appears to be sinus, but she has had history of paroxysmal atrial fibrillation and will be closely monitored. We will continue to closely monitor her in IM. PT/OT evaluations will be requested as well. Job ID: [id number] MTDD
[2019-08-06] MEDS: Budesonide 0.25 MG/2 ML NEB INH SCH (18:38)
[2019-08-06] MEDS ORDERED: Acetaminophen/Codeine 30-300mg Tablet PO SCH (21:00)
[2019-08-06] MEDS: Famotidine 20 MG TAB PO SCH (21:46)
[2019-08-06] MEDS: Amoxicillin/Potassium Clav 875 MG TAB PO SCH (21:46)
[2019-08-06] MEDS: Docusate 100 MG CAP PO SCH (21:52)
[2019-08-07] MEDS: methylPREDNISolone Sod Succ 40 MG VIAL IVP SCH ×4 (01:27→17:24)
[2019-08-07 05:07] LABS: #Basophils 0.1 thou/uL (0.0-0.2); #Lymphocytes 0.2 thou/uL (1.20-3.40); #Monocytes 0.3 thou/uL (0.11-0.59); #Neutrophils 9.8 thou/uL (1.40-6.50); %Basophils 0.8 % (0.0-1.0); %Eosinophils 0.2 % (0.0-10.0); %Lymphocytes 1.7 % (21.0-51.0); %Monocytes 3.1 % (0.0-10.0); %Neutrophils 94.3 % (42.0-75.0); Hemoglobin 9.8 g/dL (12.0-16.0); Mean Corpuscular HGB CONC 32.1 g/dL (32.0-36.0); Mean Corpuscular Hemoglobin 31.3 pg (27.0-31.0); Mean Corpuscular Volume 97.3 fL (78.0-98.0); Mean Platelet Volume 8.4 fL (7.4-10.4); Platelet Count 222 thou/uL (130-400); RBC Distribution Width 11.6 % (11.5-14.5); Red Blood Cell (RBC) Count 3.13 mill/uL (4.20-5.40); White Blood Cell (WBC) Count 10.4 thou/uL (4.8-10.8)
[2019-08-07 05:25] LABS: Anion Gap 14 mmol/L (10-20); BUN (Urea Nitrogen) 11 mg/dL (9.8-20.1); Calc. Creatinine Clearance 72 mL/min (70-130); Calcium 8.8 mg/dL (7.8-10.44); Carbon Dioxide 34 mmol/L (23-31); Chloride 89 mmol/L (98-107); Estimated GFR-MDRD 88; Glucose 297 mg/dL (83-110); Potassium 3.6 mmol/L (3.5-5.1); Sodium 133 mmol/L (136-145)
[2019-08-07] MEDS: HumaLOG 300 UNITS/3 ML VIAL SC PRN ×4 (05:28→21:52)
[2019-08-07] MEDS: Sodium Chloride 0.9% 1,000 ML IV SCH (06:10)
[2019-08-07] MEDS: Budesonide 0.25 MG/2 ML NEB INH SCH ×2 (07:36→18:42)
[2019-08-07] MEDS: Docusate 100 MG CAP PO SCH ×2 (09:09→21:51)
[2019-08-07] MEDS: Furosemide 40 MG TAB PO SCH (09:09)
[2019-08-07] MEDS: Folic Acid 1 MG TAB PO SCH (09:09)
[2019-08-07] MEDS: Famotidine 20 MG TAB PO SCH ×2 (09:09→21:51)
[2019-08-07] MEDS: Amoxicillin/Potassium Clav 875 MG TAB PO SCH ×2 (09:09→21:51)
[2019-08-07] MEDS: metFORMIN 500 MG TAB PO SCH (09:09)
[2019-08-07] MEDS: Aspirin 81 mg Enteric Coated Tablet PO SCH (09:10)
[2019-08-07] MEDS: Enoxaparin Sodium 40 MG/0.4 ML SYRINGE SC SCH (09:10)
--- NOTE | 2019-08-07 09:43 | CON ---
DATE OF CONSULTATION: 08/06/2019 HISTORY OF PRESENT ILLNESS: Cindy Cedillo is a 79-year-old female, who was just recently discharged from hospital several days ago, presents with increased shortness of breath, cough, yellow sputum, but no fever or chills. Most days, she can barely walk a couple of 100 feet without getting markedly dyspneic. Former smoker, quit smoking 5 years ago. PAST MEDICAL HISTORY: 1. [id number] diastolic dysfunction. 2. COPD. 3. Respiratory failure. 4. Atrial tachycardia. 5. Morbid obesity. 6. Probably sleep apnea. PAST SURGICAL HISTORY: Otherwise included cataract surgery. DISCHARGE HOME MEDICINES: Include; 1. Prednisone. 2. Metformin 500 twice a day. 3. Protonix 20. 4. Toprol-XL 25. 5. DuoNeb. 6. Lasix 20. 7. Folic acid. 8. Cardizem 60. Now, she is started on; 1. Augmentin. 2. Symbicort. 3. Neb treatments. 4. Steroids, to which she is feeling better. ALLERGIES: NONE. REVIEW OF SYSTEMS: Otherwise, 10-point negative. PHYSICAL EXAMINATION: VITAL SIGNS: Temperature 97, pulse 80, respiratory rate 18, and blood pressure CHEST: No wheezing or crackles. CARDIAC: Normal S1, S2. No gallops. ABDOMEN: No masses. LABORATORY DATA: PO2 is 99, PCO2 is 76, pH 7.35. Lytes are normal. White cell count 15,000. DIAGNOSTIC DATA: Chest x-ray is normal. CT angio is negative. ASSESSMENT: 1. [id number] respiratory failure secondary to congestive heart failure and chronic obstructive pulmonary disease exacerbation. 2. Morbid obesity. 3. Probably sleep apnea. 4. Cardiac arrhythmias. PLAN: I agree with present treatment. Empiric antibiotics. Neb treatments. Supportive care. Notify Dr. Rodriguez. Consultation note, 70 minutes, 50% direct patient care. Job ID: [id number]
--- NOTE | 2019-08-07 14:15 | PDOC.HOSPP ---
- Subjective Encounter Date: 08/07/19 Encounter Time: 14:13 Subjective: Patient seen and examined for Resp failure. Feeling better. Productive cough +. SOB improving. No new complaints. No overnight events - Objective Vital Signs & Weight: Vital Signs (12 hours) Temp Pulse Resp Pulse Ox 08/07/19 13:09 98 23 H 99 08/07/19 11:22 98.3 F 08/07/19 07:36 99 08/07/19 07:33 100 28 H 99 08/07/19 07:31 96 08/07/19 07:13 98.0 F 08/07/19 03:48 98.0 F Weight Weight 141 lb 9 oz Most Recent Monitor Data Heart Rate from ECG 102 NIBP 168/83 NIBP BP-Mean 111 Respiration from ECG 21 SpO2 99 I&O: 08/06/19 08/07/19 08/08/19 06:59 06:59 06:59 Intake Total 1525 Output Total 600 Balance 925 Result Diagrams: 08/07/19 04:36 08/07/19 04:36 Additional Labs: Accuchecks 08/07/19 08/07/19 08/06/19 10:32 05:28 20:03 POC Glucose 305 H 320 H 322 H EKG Reviewed by me: Yes (Tele SR) Hospitalist ROS - Review of Systems Cardiovascular: denies: chest pain, palpitations, orthopnea, paroxysmal noc. dyspnea, edema, light headedness, other Gastrointestinal: denies: nausea, vomiting, abdominal pain, diarrhea, constipation, melena, hematochezia, other - Medication Medications: Active Medications Generic Name Dose Route Start Last Admin Trade Name Freq PRN Reason Stop Dose Admin Acetaminophen/Codeine Phosphate 2 tab 08/06/19 15:10 08/06/19 21:49 Tylenol #3 PO 2 tab Q6H PRN Administration Severe Pain (7-10) Albuterol/Ipratropium 3 ml 08/06/19 13:00 08/07/19 13:09 Duoneb NEB 3 ml [id number] WHITNEY Administration Amoxicillin/Clavulanate Potassium 875 mg 08/06/19 21:00 08/07/19 09:09 Augmentin PO 875 mg BID WHITNEY Administration Aspirin 81 mg 08/07/19 09:00 08/07/19 09:10 Ecotrin PO 81 mg DAILY WHITNEY Administration Budesonide 0.5 mg 08/06/19 18:30 08/07/19 07:36 Pulmicort Neb Solution INH 0.5 mg BID-RT WHITNEY Administration Diltiazem HCl 60 mg 08/06/19 21:00 08/07/19 09:09 Cardizem PO 60 mg BID WHITNEY Administration Docusate Sodium 100 mg 08/06/19 21:00 08/07/19 09:09 Colace PO 100 mg BID WHITNEY Administration Enoxaparin Sodium 40 mg 08/07/19 09:00 08/07/19 09:10 Lovenox SC 40 mg 0900 WHITNEY Administration Famotidine 20 mg 08/06/19 21:00 08/07/19 09:09 Pepcid PO 20 mg BID WHITNEY Administration Folic Acid 1 mg 08/07/19 09:00 08/07/19 09:09 Folvite PO 1 mg DAILY WHITNEY Administration Furosemide 40 mg 08/07/19 07:30 08/07/19 09:09 Lasix PO 40 mg DAILY-AC WHITNEY Administration Sodium Chloride 1,000 mls @ 60 mls/hr 08/06/19 11:48 08/07/19 06:10 Normal Saline 0.9% IV 1,000 mls .[id number] WHITNEY Administration Insulin Human Lispro 0 units 08/06/19 11:48 08/07/19 11:19 Humalog SC 8 unit .MODERATE SLIDING SC PRN Administration Moderate Correctional Scale Insulin Human Lispro 0 units 08/06/19 11:48 08/06/19 21:47 Humalog SC 4 unit .BEDTIME SLIDING SC PRN Administration Bedtime Correctional Scale Metformin HCl 500 mg 08/06/19 17:00 08/07/19 09:09 Glucophage PO 500 mg BID-WM WHITNEY Administration Methylprednisolone Sodium Succinate 20 mg 08/06/19 12:00 08/07/19 11:19 Solu-Medrol IVP 20 mg Q6HR WHITNEY Administration Metoprolol Succinate 25 mg 08/07/19 09:00 08/07/19 09:09 Toprol Xl PO 25 mg DAILY WHITNEY Administration - Exam General Appearance: NAD Neck: supple, no JVD Heart: RRR, no gallops, no rubs Heart - other findings: no heaves Respiratory: no rales, normal chest expansion, rhonchi, tachypneic, wheezes Gastrointestinal: soft, non-tender, non-distended, normal bowel sounds Extremities: no edema Skin: no rashes Psychiatric: normal affect, A&O x 3 Hosp A/P - Plan DVT proph w/lovenox Acute on chronic hypoxic/hypercapnic resp failure due to COPD/CHF Exacerbation s /p NIPPV Sepsis due to suspected Bronchopneumonia ?gram negative Lactic acidosis HTN DM2 Hyponatremia PLAN: Cont Atbx/Steroids Hold Metformin due to CTA Cont sliding scale DC IVF after this bag BMP in AM Cont O2 supp Add NPH Cont Moderate SS
[2019-08-07] MEDS: Acetaminophen/Codeine 30-300mg Tablet PO PRN ×2 (15:44→22:22)
[2019-08-07] MEDS: NPH, Human Insulin Isophane 300 UNIT/3 ML VIAL SC SCH (21:52)
[2019-08-08] MEDS: methylPREDNISolone Sod Succ 40 MG VIAL IVP SCH ×4 (00:45→17:15)
[2019-08-08] MEDS: HumaLOG 300 UNITS/3 ML VIAL SC PRN ×5 (02:05→20:24)
[2019-08-08 04:14] LABS: Anion Gap 13 mmol/L (10-20); BUN (Urea Nitrogen) 16 mg/dL (9.8-20.1); Calc. Creatinine Clearance 63 mL/min (70-130); Calcium 8.9 mg/dL (7.8-10.44); Carbon Dioxide 35 mmol/L (23-31); Chloride 90 mmol/L (98-107); Estimated GFR-MDRD 75; Glucose 339 mg/dL (83-110); Magnesium 2.2 mg/dL (1.6-2.6); Sodium 134 mmol/L (136-145)
[2019-08-08] MEDS: Acetaminophen/Codeine 30-300mg Tablet PO PRN ×3 (06:48→22:46)
[2019-08-08] MEDS: Furosemide 40 MG TAB PO SCH (06:49)
[2019-08-08] MEDS: Budesonide 0.25 MG/2 ML NEB INH SCH ×2 (08:14→18:51)
[2019-08-08] MEDS: Docusate 100 MG CAP PO SCH ×2 (08:52→20:25)
[2019-08-08] MEDS: Aspirin 81 mg Enteric Coated Tablet PO SCH (08:52)
[2019-08-08] MEDS: Amoxicillin/Potassium Clav 875 MG TAB PO SCH ×2 (08:52→20:24)
[2019-08-08] MEDS: Famotidine 20 MG TAB PO SCH ×2 (08:52→20:24)
[2019-08-08] MEDS: Folic Acid 1 MG TAB PO SCH (08:53)
[2019-08-08] MEDS: Enoxaparin Sodium 40 MG/0.4 ML SYRINGE SC SCH (08:54)
[2019-08-08] MEDS: NPH, Human Insulin Isophane 300 UNIT/3 ML VIAL SC SCH ×2 (08:55→20:23)
--- NOTE | 2019-08-08 17:01 | PRG ---
DATE OF SERVICE: 08/08/2019 SUBJECTIVE: Ms. Cedillo's events have been reviewed. She has no complaints. She says she feels almost back to normal. OBJECTIVE: VITAL SIGNS: She is on 4 L cannula, oximetry is 94%, blood pressure 186/78, heart rate is 108 to 114 this afternoon. LUNGS: Clear. HEART: Regular rhythm. ABDOMEN: Soft. LABORATORY DATA: Sodium 134, potassium 4, chloride 90, bicarb 35, BUN 16, creatinine 0.75. IMPRESSION: 1. Chronic obstructive pulmonary disease exacerbation, clinically improved. 2. Deconditioning which is big factor with her. PLAN: 1. Continue the same. 2. We can consider converting her to prednisone in the morning. Job ID: [id number]
[2019-08-08] MEDS ORDERED: cloNIDine 0.1 MG TAB PO PRN (18:04)
[2019-08-08] MEDS ORDERED: hydrALAZINE 20 MG/ML VIAL SLOW IVP PRN (18:04)
--- NOTE | 2019-08-08 18:12 | PDOC.HOSPP ---
- Subjective Encounter Date: 08/08/19 Encounter Time: 18:10 Subjective: Patient seen and examined for Resp failure. SOB improving. No CP. No new complaints. No overnight events - Objective Vital Signs & Weight: Vital Signs (12 hours) Temp Pulse Pulse Pulse Pulse Resp BP 08/08/19 16:43 98.1 F 08/08/19 15:07 114 H 108 H 186/78 H 08/08/19 13:12 103 H 24 H 08/08/19 11:23 98.2 F 08/08/19 08:59 98 101 H 139/98 H 08/08/19 08:14 08/08/19 08:11 117 H 30 H 08/08/19 07:46 08/08/19 07:17 97.9 F BP BP Pulse Ox Pulse Ox Pulse Ox Pulse Ox 08/08/19 16:43 08/08/19 15:07 173/76 H 94 L 84 L 96 08/08/19 13:12 100 08/08/19 11:23 08/08/19 08:59 150/64 H 120 H 93 L 08/08/19 08:14 99 08/08/19 08:11 100 08/08/19 07:46 100 08/08/19 07:17 Weight Weight 141 lb 9 oz Most Recent Monitor Data Heart Rate from ECG 103 NIBP 147/74 NIBP BP-Mean 98 Respiration from ECG 21 SpO2 98 I&O: 08/07/19 08/08/19 08/09/19 06:59 06:59 06:59 Intake Total 1525 1559 360 Output Total 600 350 Balance 925 1209 360 Result Diagrams: 08/07/19 04:36 08/08/19 03:25 Additional Labs: Accuchecks 08/08/19 08/08/19 08/08/19 16:40 11:19 06:18 POC Glucose 244 H 251 H 253 H 08/08/19 08/07/19 02:03 20:24 POC Glucose 383 H 265 H EKG Reviewed by me: Yes (Tele SR) Hospitalist ROS - Review of Systems Cardiovascular: denies: chest pain, palpitations, orthopnea, paroxysmal noc. dyspnea, edema, light headedness, other Gastrointestinal: denies: nausea, vomiting, abdominal pain, diarrhea, constipation, melena, hematochezia, other - Medication Medications: Active Medications Generic Name Dose Route Start Last Admin Trade Name Freq PRN Reason Stop Dose Admin Acetaminophen/Codeine Phosphate 2 tab 08/06/19 15:10 08/08/19 16:34 Tylenol #3 PO 2 tab Q6H PRN Administration Severe Pain (7-10) Albuterol/Ipratropium 3 ml 08/06/19 13:00 08/08/19 13:12 Duoneb NEB 3 ml [id number] WHITNEY Administration Amoxicillin/Clavulanate Potassium 875 mg 08/06/19 21:00 08/08/19 08:52 Augmentin PO 875 mg BID WHITNEY Administration Aspirin 81 mg 08/07/19 09:00 08/08/19 08:52 Ecotrin PO 81 mg DAILY WHITNEY Administration Budesonide 0.5 mg 08/06/19 18:30 08/08/19 08:14 Pulmicort Neb Solution INH 0.5 mg BID-RT WHITNEY Administration Diltiazem HCl 60 mg 08/06/19 21:00 08/08/19 08:53 Cardizem PO 60 mg BID WHITNEY Administration Docusate Sodium 100 mg 08/06/19 21:00 08/08/19 08:52 Colace PO Not Given BID WHITNEY Enoxaparin Sodium 40 mg 08/07/19 09:00 08/08/19 08:54 Lovenox SC 40 mg 0900 WHITNEY Administration Famotidine 20 mg 08/06/19 21:00 08/08/19 08:52 Pepcid PO 20 mg BID WHITNEY Administration Folic Acid 1 mg 08/07/19 09:00 08/08/19 08:53 Folvite PO 1 mg DAILY WHITNEY Administration Furosemide 40 mg 08/07/19 07:30 08/08/19 06:49 Lasix PO 40 mg DAILY-AC WHITNEY Administration Insulin Human Lispro 0 units 08/06/19 11:48 08/08/19 16:39 Humalog SC 4 unit .MODERATE SLIDING SC PRN Administration Moderate Correctional Scale Insulin Human Lispro 0 units 08/06/19 11:48 08/08/19 02:05 Humalog SC 5 unit .BEDTIME SLIDING SC PRN Administration Bedtime Correctional Scale Insulin Human NPH 10 unit 08/07/19 21:00 08/08/19 08:55 Humulin N SC 10 unit BID WHITNEY Administration Methylprednisolone Sodium Succinate 20 mg 08/06/19 12:00 08/08/19 17:15 Solu-Medrol IVP 20 mg Q6HR WHITNEY Administration Metoprolol Succinate 25 mg 08/07/19 09:00 08/08/19 08:53 Toprol Xl PO 25 mg DAILY WHITNEY Administration - Exam General Appearance: NAD Heart: RRR, no rubs Respiratory: no wheezes, no rales, rhonchi Gastrointestinal: soft, non-tender, non-distended, normal bowel sounds Extremities: no edema Hosp A/P - Plan DVT proph w/lovenox, DVT proph w/SCDs Acute on chronic hypoxic/hypercapnic resp failure due to COPD/CHF Exacerbation s /p NIPPV Sepsis due to suspected Bronchopneumonia ?gram negative Lactic acidosis HTN DM2 Hyponatremia CKD 2 PLAN: Cont Augmentin/Steroids Restart Metformin in AM Cont Toprol/Cardizem/Lasix Cont other meds Increase NPH to 15 AM and 10 HS Cont Moderate SS BMP in AM
[2019-08-08] MEDS ORDERED: Melatonin 3 MG TAB PO PRN (20:33)
[2019-08-08] MEDS: Guaifenesin DM 100-10/5 ML UDCUP PO PRN (21:00)
[2019-08-09] MEDS: methylPREDNISolone Sod Succ 40 MG VIAL IVP SCH ×3 (00:21→11:42)
[2019-08-09 05:13] LABS: BUN (Urea Nitrogen) 13 mg/dL (9.8-20.1); Calc. Creatinine Clearance 62 mL/min (70-130); Calcium 8.8 mg/dL (7.8-10.44); Estimated GFR-MDRD 74; Glucose 291 mg/dL (83-110)
[2019-08-09 05:22] LABS: Anion Gap 13 mmol/L (10-20); Carbon Dioxide 37 mmol/L (23-31); Chloride 89 mmol/L (98-107); Potassium 4.4 mmol/L (3.5-5.1); Sodium 135 mmol/L (136-145)
[2019-08-09] MEDS: HumaLOG 300 UNITS/3 ML VIAL SC PRN ×3 (06:22→20:42)
[2019-08-09] MEDS: Budesonide 0.25 MG/2 ML NEB INH SCH ×2 (07:30→18:18)
[2019-08-09] MEDS: NPH, Human Insulin Isophane 300 UNIT/3 ML VIAL SC SCH ×2 (09:52→20:42)
[2019-08-09] MEDS: Enoxaparin Sodium 40 MG/0.4 ML SYRINGE SC SCH (09:53)
[2019-08-09] MEDS: Amoxicillin/Potassium Clav 875 MG TAB PO SCH ×2 (09:53→20:41)
[2019-08-09] MEDS: Saccharomyces boulardii 250 MG CAP PO SCH (09:53)
[2019-08-09] MEDS: metFORMIN 500 MG TAB PO SCH ×2 (09:54→17:26)
[2019-08-09] MEDS: Acetaminophen/Codeine 30-300mg Tablet PO PRN ×3 (09:54→23:46)
[2019-08-09] MEDS: Aspirin 81 mg Enteric Coated Tablet PO SCH (09:54)
[2019-08-09] MEDS: Famotidine 20 MG TAB PO SCH ×2 (09:55→20:41)
[2019-08-09] MEDS: Folic Acid 1 MG TAB PO SCH (09:55)
[2019-08-09] MEDS: Docusate 100 MG CAP PO SCH ×2 (09:55→20:41)
[2019-08-09] MEDS: Furosemide 40 MG TAB PO SCH (09:55)
--- NOTE | 2019-08-09 15:22 | PRG ---
DATE OF SERVICE: 08/09/2019 SUBJECTIVE: Ms. Cedillo has no complaints. She had a complete lunch. OBJECTIVE: VITAL SIGNS: Blood pressure 151/69, heart rate is 96, respiratory rate 21. LUNGS: Clear. HEART: Regular rhythm. ABDOMEN: Soft. LABORATORY DATA: White count 10.4, hemoglobin 9.8 two days ago. Sodium 135, potassium 4.4, chloride 89, bicarb 37, BUN 13, creatinine 0.76. IMPRESSION: 1. Chronic obstructive pulmonary disease exacerbation, resolved. 2. Deconditioning. She wants to go back over to rehab when she is discharged. Her IV steroids can be p.o. steroids for this. I would think she is stable to go back to rehab . She can have steroid taper over there and continue nebulizer treatments . Job ID: [id number]
--- NOTE | 2019-08-09 15:38 | PDOC.HOSPP ---
- Subjective Encounter Date: 08/09/19 Encounter Time: 07:00 Subjective: Pt seen for followup re: acute on chronic hypoxic respiratory failure. Feels better. Cough+, no sputum. - Objective Vital Signs & Weight: Vital Signs (12 hours) Temp Pulse Pulse Pulse Resp BP BP 08/09/19 15:35 96.2 F L 08/09/19 13:23 95 95 141/75 H 145/71 H 08/09/19 13:04 89 24 H 08/09/19 11:08 97.3 F L 08/09/19 07:29 88 24 H 08/09/19 07:22 97.3 F L Pulse Ox Pulse Ox Pulse Ox Pulse Ox 08/09/19 15:35 08/09/19 13:23 94 L 88 L 96 08/09/19 13:04 08/09/19 11:08 08/09/19 07:29 100 08/09/19 07:22 Weight Weight 141 lb 9 oz Most Recent Monitor Data Heart Rate from ECG 96 NIBP 151/69 NIBP BP-Mean 96 Respiration from ECG 21 SpO2 96 I&O: 08/08/19 08/09/19 08/10/19 06:59 06:59 06:59 Intake Total 1559 1201 Output Total 350 550 Balance 1209 651 Result Diagrams: 08/07/19 04:36 08/09/19 04:32 Additional Labs: Accuchecks 08/09/19 08/09/19 08/09/19 10:42 05:43 01:59 POC Glucose 272 H 277 H 276 H 08/08/19 08/08/19 20:06 16:40 POC Glucose 232 H 244 H Labs and MARs reviewed by nv Hospitalist ROS - Review of Systems Respiratory: reports: cough, dry, SOB with excertion. denies: shortness of breath, hemoptysis, pleuritic pain, sputum, wheezing Cardiovascular: denies: chest pain, palpitations, orthopnea, paroxysmal noc. dyspnea, edema, light headedness - Medication Medications: Active Medications Generic Name Dose Route Start Last Admin Trade Name Freq PRN Reason Stop Dose Admin Acetaminophen/Codeine Phosphate 2 tab 08/06/19 15:10 08/09/19 09:54 Tylenol #3 PO 2 tab Q6H PRN Administration Severe Pain (7-10) Albuterol/Ipratropium 3 ml 08/06/19 13:00 08/09/19 13:04 Duoneb NEB 3 ml [id number] WHITNEY Administration Amoxicillin/Clavulanate Potassium 875 mg 08/06/19 21:00 08/09/19 09:53 Augmentin PO 875 mg BID WHITNEY Administration Aspirin 81 mg 08/07/19 09:00 08/09/19 09:54 Ecotrin PO 81 mg DAILY WHITNEY Administration Budesonide 0.5 mg 08/06/19 18:30 08/09/19 07:30 Pulmicort Neb Solution INH 0.5 mg BID-RT WHITNEY Administration Clonidine 0.1 mg 08/08/19 18:04 08/08/19 18:24 Catapres PO 0.1 mg Q4H PRN Administration SBP Greater Than 180 Diltiazem HCl 60 mg 08/06/19 21:00 08/09/19 09:54 Cardizem PO 60 mg BID WHITNEY Administration Docusate Sodium 100 mg 08/06/19 21:00 08/09/19 09:55 Colace PO Not Given BID WHITNEY Enoxaparin Sodium 40 mg 08/07/19 09:00 08/09/19 09:53 Lovenox SC 40 mg 0900 WHITNEY Administration Famotidine 20 mg 08/06/19 21:00 08/09/19 09:55 Pepcid PO 20 mg BID WHITNEY Administration Folic Acid 1 mg 08/07/19 09:00 08/09/19 09:55 Folvite PO 1 mg DAILY WHITNEY Administration Furosemide 40 mg 08/07/19 07:30 08/09/19 09:55 Lasix PO 40 mg DAILY-AC WHITNEY Administration Guaifenesin/Dextromethorphan 15 ml 08/06/19 11:48 08/08/19 21:00 Robitussin Dm PO 15 ml Q4H PRN Administration Cough Insulin Human Lispro 0 units 08/06/19 11:48 08/09/19 11:40 Humalog SC 6 unit .MODERATE SLIDING SC PRN Administration Moderate Correctional Scale Insulin Human Lispro 0 units 08/06/19 11:48 08/08/19 20:24 Humalog SC 2 unit .BEDTIME SLIDING SC PRN Administration Bedtime Correctional Scale Insulin Human NPH 15 unit 08/09/19 09:00 08/09/19 09:52 Humulin N SC 15 unit QAM WHITNEY Administration Insulin Human NPH 10 unit 08/08/19 21:00 08/08/19 20:23 Humulin N SC 10 unit HS WHITNEY Administration Metformin HCl 500 mg 08/09/19 08:00 08/09/19 09:54 Glucophage PO 500 mg BID-WM WHITNEY Administration Metoprolol Succinate 25 mg 08/07/19 09:00 08/09/19 09:54 Toprol Xl PO 25 mg DAILY WHITNEY Administration Saccharomyces Boulardii 250 mg 08/09/19 09:00 08/09/19 09:53 Florastor PO 250 mg DAILY WHITNEY Administration - Exam General Appearance: NAD Eye: anicteric sclera ENT: moist mucosa Neck: supple Respiratory: CTAB Gastrointestinal: soft, non-tender Extremities: no clubbing Neurological: no weakness Psychiatric: normal affect, normal behavior Hosp A/P (1) Acute and chronic respiratory failure with hypoxia Code(s): J96.21 - ACUTE AND CHRONIC RESPIRATORY FAILURE WITH HYPOXIA Status: Acute (2) COPD exacerbation Code(s): J44.1 - CHRONIC OBSTRUCTIVE PULMONARY DISEASE W (ACUTE) EXACERBATION Status: Acute (3) Hyponatremia Code(s): E87.1 - HYPO-OSMOLALITY AND HYPONATREMIA Status: Acute (4) DM2 (diabetes mellitus, type 2) Status: Chronic - Plan PT/OT, out of bed/ambulate Clinically improving. Continue oxygen, oral steroids and bronchodilators. Continue accuchecks and insulin sliding scale.
[2019-08-09] MEDS: Guaifenesin DM 100-10/5 ML UDCUP PO PRN (20:40)
[2019-08-10] MEDS: Guaifenesin DM 100-10/5 ML UDCUP PO PRN ×2 (05:56→22:22)
[2019-08-10] MEDS: HumaLOG 300 UNITS/3 ML VIAL SC PRN (05:56)
[2019-08-10] MEDS: Acetaminophen/Codeine 30-300mg Tablet PO PRN ×3 (05:57→22:03)
[2019-08-10] MEDS: Budesonide 0.25 MG/2 ML NEB INH SCH ×2 (07:53→18:41)
--- NOTE | 2019-08-10 09:50 | PRG ---
DATE OF SERVICE: 08/10/2019 SUBJECTIVE: Cindy Cedillo is in no distress. She feels she is back to her baseline. OBJECTIVE: VITAL SIGNS: She is afebrile, heart rate 80, respiratory rate is 20, oximetry is 99% on 4 liters. LUNGS: Clear. HEART: Regular rhythm. ABDOMEN: Soft. EXTREMITIES: Without edema. PLAN: 1. We need to try to wean off O2. She is medically stable. 2. Probably could be transferred out of the intermediate care unit. Job ID: [id number]
[2019-08-10] MEDS: Amoxicillin/Potassium Clav 875 MG TAB PO SCH ×2 (10:27→22:03)
[2019-08-10] MEDS: Enoxaparin Sodium 40 MG/0.4 ML SYRINGE SC SCH (10:27)
[2019-08-10] MEDS: Saccharomyces boulardii 250 MG CAP PO SCH (10:27)
[2019-08-10] MEDS: predniSONE 20 MG TAB PO SCH (10:28)
[2019-08-10] MEDS: Folic Acid 1 MG TAB PO SCH (10:28)
[2019-08-10] MEDS: Docusate 100 MG CAP PO SCH ×2 (10:28→21:49)
[2019-08-10] MEDS: Famotidine 20 MG TAB PO SCH ×2 (10:28→22:03)
[2019-08-10] MEDS: metFORMIN 500 MG TAB PO SCH ×2 (10:28→16:33)
[2019-08-10] MEDS: Aspirin 81 mg Enteric Coated Tablet PO SCH (10:28)
[2019-08-10] MEDS: NPH, Human Insulin Isophane 300 UNIT/3 ML VIAL SC SCH ×2 (10:29→22:05)
[2019-08-10] MEDS: Furosemide 40 MG TAB PO SCH (10:29)
--- NOTE | 2019-08-10 18:09 | PDOC.HOSPP ---
- Subjective Encounter Date: 08/10/19 Encounter Time: 09:20 Subjective: Pt seen for followup re: acute -on-chjronic hypoxic respiratory failure. feels much better. - Objective Vital Signs & Weight: Vital Signs (12 hours) Temp Pulse Pulse Pulse Resp BP BP 08/10/19 16:15 98.0 F 08/10/19 14:04 82 20 08/10/19 11:36 97.5 F L 08/10/19 10:33 103 H 96 185/81 H 154/68 H 08/10/19 07:56 97.8 F 08/10/19 07:51 80 20 Pulse Ox Pulse Ox Pulse Ox Pulse Ox 08/10/19 16:15 08/10/19 14:04 100 08/10/19 11:36 08/10/19 10:33 95 88 L 99 08/10/19 07:56 08/10/19 07:51 99 Weight Weight 141 lb 9 oz Most Recent Monitor Data Heart Rate from ECG 87 NIBP 166/64 NIBP BP-Mean 98 Respiration from ECG 19 SpO2 100 I&O: 08/09/19 08/10/19 08/11/19 06:59 06:59 06:59 Intake Total 1201 740 480 Output Total 060 738 0483 Balance 651 90 -620 Result Diagrams: 08/07/19 04:36 08/09/19 04:32 Additional Labs: Accuchecks 08/10/19 08/10/19 08/09/19 11:22 05:08 20:12 POC Glucose 167 H 171 H 299 H Labs and MARs reviewed by me EKG Reviewed by me: Yes (Tele: NSR) Hospitalist ROS - Review of Systems Constitutional: denies: fever, chills, sweats, weakness, malaise Respiratory: reports: cough, dry, SOB with excertion. denies: shortness of breath, hemoptysis, pleuritic pain, sputum, wheezing Cardiovascular: denies: chest pain, palpitations, orthopnea, paroxysmal noc. dyspnea, edema, light headedness - Medication Medications: Active Medications Generic Name Dose Route Start Last Admin Trade Name Freq PRN Reason Stop Dose Admin Acetaminophen/Codeine Phosphate 2 tab 08/06/19 15:10 08/10/19 16:32 Tylenol #3 PO 2 tab Q6H PRN Administration Severe Pain (7-10) Albuterol/Ipratropium 3 ml 08/06/19 13:00 08/10/19 14:04 Duoneb NEB 3 ml [id number] WHITNEY Administration Amoxicillin/Clavulanate Potassium 875 mg 08/06/19 21:00 08/10/19 10:27 Augmentin PO 875 mg BID WHITNEY Administration Aspirin 81 mg 08/07/19 09:00 08/10/19 10:28 Ecotrin PO 81 mg DAILY WHITNEY Administration Budesonide 0.5 mg 08/06/19 18:30 08/10/19 07:53 Pulmicort Neb Solution INH 0.5 mg BID-RT WHITNEY Administration Clonidine 0.1 mg 08/08/19 18:04 08/08/19 18:24 Catapres PO 0.1 mg Q4H PRN Administration SBP Greater Than 180 Diltiazem HCl 60 mg 08/06/19 21:00 08/10/19 10:33 Cardizem PO 60 mg BID WHITNEY Administration Docusate Sodium 100 mg 08/06/19 21:00 08/10/19 10:28 Colace PO Not Given BID WHITNEY Enoxaparin Sodium 40 mg 08/07/19 09:00 08/10/19 10:27 Lovenox SC 40 mg 0900 WHITNEY Administration Famotidine 20 mg 08/06/19 21:00 08/10/19 10:28 Pepcid PO 20 mg BID WHITNEY Administration Folic Acid 1 mg 08/07/19 09:00 08/10/19 10:28 Folvite PO 1 mg DAILY WHITNEY Administration Furosemide 40 mg 08/07/19 07:30 08/10/19 10:29 Lasix PO 40 mg DAILY-AC WHITNEY Administration Guaifenesin/Dextromethorphan 15 ml 08/06/19 11:48 08/10/19 05:56 Robitussin Dm PO 15 ml Q4H PRN Administration Cough Insulin Human Lispro 0 units 08/06/19 11:48 08/10/19 05:56 Humalog SC 2 unit .MODERATE SLIDING SC PRN Administration Moderate Correctional Scale Insulin Human Lispro 0 units 08/06/19 11:48 08/09/19 20:42 Humalog SC 3 unit .BEDTIME SLIDING SC PRN Administration Bedtime Correctional Scale Insulin Human NPH 15 unit 08/09/19 09:00 08/10/19 10:29 Humulin N SC 15 unit QAM WHITNEY Administration Insulin Human NPH 10 unit 08/08/19 21:00 08/09/19 20:42 Humulin N SC 10 unit HS WHITNEY Administration Metformin HCl 500 mg 08/09/19 08:00 08/10/19 16:33 Glucophage PO 500 mg BID-WM WHITNEY Administration Metoprolol Succinate 25 mg 08/07/19 09:00 08/10/19 10:29 Toprol Xl PO 25 mg DAILY WHITNEY Administration Prednisone 40 mg 08/10/19 08:00 08/10/19 10:28 Prednisone PO 40 mg QAM-WM WHITNEY Administration Saccharomyces Boulardii 250 mg 08/09/19 09:00 08/10/19 10:27 Florastor PO 250 mg DAILY WHITNEY Administration - Exam General Appearance: NAD Eye: anicteric sclera ENT: moist mucosa Neck: supple Heart: RRR Respiratory: CTAB Gastrointestinal: soft, non-tender Skin: no rashes Musculoskeletal: normal strength Psychiatric: normal affect, normal behavior Hosp A/P (1) Acute and chronic respiratory failure with hypoxia Code(s): J96.21 - ACUTE AND CHRONIC RESPIRATORY FAILURE WITH HYPOXIA Status: Acute (2) COPD exacerbation Code(s): J44.1 - CHRONIC OBSTRUCTIVE PULMONARY DISEASE W (ACUTE) EXACERBATION Status: Acute (3) Hyponatremia Code(s): E87.1 - HYPO-OSMOLALITY AND HYPONATREMIA Status: Acute (4) DM2 (diabetes mellitus, type 2) Status: Chronic - Plan PT/OT, out of bed/ambulate Pt improved significantly. Continue oxygen, oral steroids and bronchodilators. Continue accuchecks and insulin sliding scale. Pt wishes to go to SNU. case management following.
[2019-08-11] MEDS: Guaifenesin DM 100-10/5 ML UDCUP PO PRN ×2 (05:33→21:12)
[2019-08-11] MEDS: Budesonide 0.25 MG/2 ML NEB INH SCH ×2 (06:35→18:59)
[2019-08-11] MEDS: Folic Acid 1 MG TAB PO SCH (08:34)
[2019-08-11] MEDS: Furosemide 40 MG TAB PO SCH (08:34)
[2019-08-11] MEDS: Amoxicillin/Potassium Clav 875 MG TAB PO SCH ×2 (08:34→20:47)
[2019-08-11] MEDS: Saccharomyces boulardii 250 MG CAP PO SCH (08:34)
[2019-08-11] MEDS: metFORMIN 500 MG TAB PO SCH ×2 (08:35→17:41)
[2019-08-11] MEDS: Enoxaparin Sodium 40 MG/0.4 ML SYRINGE SC SCH (08:35)
[2019-08-11] MEDS: predniSONE 20 MG TAB PO SCH (08:35)
[2019-08-11] MEDS: Docusate 100 MG CAP PO SCH ×2 (08:35→20:47)
[2019-08-11] MEDS: Aspirin 81 mg Enteric Coated Tablet PO SCH (08:35)
[2019-08-11] MEDS: Famotidine 20 MG TAB PO SCH ×2 (08:35→20:47)
[2019-08-11] MEDS: NPH, Human Insulin Isophane 300 UNIT/3 ML VIAL SC SCH ×2 (08:36→20:48)
[2019-08-11] MEDS: Acetaminophen/Codeine 30-300mg Tablet PO PRN ×3 (08:38→22:17)
--- NOTE | 2019-08-11 17:15 | PDOC.HOSPP ---
- Subjective Subjective: Seen and examined. Patient states that overall she is breathing much better sense arrival. Patient still with some shortness of breath and cough. Patient with lower lobe wheezing. Patient on oral antibiotics and oral steroids. Not using incentive spirometry, will add. Will plan for D/c back to SNF where she is a chronic resident. - Objective Vital Signs & Weight: Vital Signs (12 hours) Temp Pulse Resp BP Pulse Ox 08/11/19 13:09 86 16 08/11/19 12:02 97.9 F 86 18 135/70 100 08/11/19 08:00 100 08/11/19 07:06 97.5 F L 82 18 170/75 H 100 08/11/19 06:38 98 08/11/19 06:35 78 16 Weight Weight 141 lb 9 oz Most Recent Monitor Data Heart Rate from ECG 105 NIBP 178/77 NIBP BP-Mean 110 Respiration from ECG 22 SpO2 92 I&O: 08/10/19 08/11/19 08/12/19 06:59 06:59 06:59 Intake Total 740 720 Output Total 650 1450 Balance 90 -730 Result Diagrams: 08/07/19 04:36 08/09/19 04:32 Additional Labs: Accuchecks 08/11/19 08/11/19 08/11/19 16:08 12:10 05:16 POC Glucose 145 H 113 H 127 H 08/10/19 19:43 POC Glucose 232 H Radiology Reviewed by me: Yes (CTA chest) Hospitalist ROS - Review of Systems All other systems reviewed; all pertinent +/- noted in HPI/Subj - Medication Medications: Active Medications Generic Name Dose Route Start Last Admin Trade Name Freq PRN Reason Stop Dose Admin Acetaminophen/Codeine Phosphate 2 tab 08/06/19 15:10 08/11/19 15:44 Tylenol #3 PO 2 tab Q6H PRN Administration Severe Pain (7-10) Albuterol/Ipratropium 3 ml 08/06/19 13:00 08/11/19 13:09 Duoneb NEB 3 ml [id number] WHITNEY Administration Amoxicillin/Clavulanate Potassium 875 mg 08/06/19 21:00 08/11/19 08:34 Augmentin PO 875 mg BID WHITNEY Administration Aspirin 81 mg 08/07/19 09:00 08/11/19 08:35 Ecotrin PO 81 mg DAILY WHITNEY Administration Budesonide 0.5 mg 08/06/19 18:30 08/11/19 06:35 Pulmicort Neb Solution INH 0.5 mg BID-RT WHITNEY Administration Clonidine 0.1 mg 08/08/19 18:04 08/08/19 18:24 Catapres PO 0.1 mg Q4H PRN Administration SBP Greater Than 180 Diltiazem HCl 60 mg 08/06/19 21:00 08/11/19 08:35 Cardizem PO 60 mg BID WHITNEY Administration Docusate Sodium 100 mg 08/06/19 21:00 08/11/19 08:35 Colace PO Not Given BID WHITNEY Enoxaparin Sodium 40 mg 08/07/19 09:00 08/11/19 08:35 Lovenox SC 40 mg 0900 WHITNEY Administration Famotidine 20 mg 08/06/19 21:00 08/11/19 08:35 Pepcid PO 20 mg BID WHITNEY Administration Folic Acid 1 mg 08/07/19 09:00 08/11/19 08:34 Folvite PO 1 mg DAILY WHITNEY Administration Furosemide 40 mg 08/07/19 07:30 08/11/19 08:34 Lasix PO 40 mg DAILY-AC WHITNEY Administration Guaifenesin/Dextromethorphan 15 ml 08/06/19 11:48 08/11/19 05:33 Robitussin Dm PO 15 ml Q4H PRN Administration Cough Insulin Human Lispro 0 units 08/06/19 11:48 08/10/19 05:56 Humalog SC 2 unit .MODERATE SLIDING SC PRN Administration Moderate Correctional Scale Insulin Human Lispro 0 units 08/06/19 11:48 08/09/19 20:42 Humalog SC 3 unit .BEDTIME SLIDING SC PRN Administration Bedtime Correctional Scale Insulin Human NPH 15 unit 08/09/19 09:00 08/11/19 08:36 Humulin N SC 15 unit QAM WHITNEY Administration Insulin Human NPH 10 unit 08/08/19 21:00 08/10/19 22:05 Humulin N SC 10 unit HS WHITNEY Administration Metformin HCl 500 mg 08/09/19 08:00 08/11/19 08:35 Glucophage PO 500 mg BID-WM WHITNEY Administration Metoprolol Succinate 25 mg 08/07/19 09:00 08/11/19 08:35 Toprol Xl PO 25 mg DAILY WHITNEY Administration Prednisone 40 mg 08/10/19 08:00 08/11/19 08:35 Prednisone PO 40 mg QAM-WM WHITNEY Administration Saccharomyces Tulioi 250 mg 08/09/19 09:00 08/11/19 08:34 Florastor PO 250 mg DAILY WHITNEY Administration - Exam General Appearance: NAD, awake alert Eye: PERRL ENT: normocephalic atraumatic, moist mucosa Neck: supple, symmetric, no lymphadenopathy Heart: no murmur, no gallops, no rubs Respiratory: no rales, no ronchi, normal chest expansion, no tachypnea, wheezes Gastrointestinal: soft, non-tender, non-distended, normal bowel sounds, no guarding, no rigidity Extremities: no edema Skin: no lesions, no rashes Neurological: cranial nerve grossly intact, no focal deficits Musculoskeletal: generalized weakness Psychiatric: normal affect, oriented to person, oriented to place Hosp A/P (1) COPD exacerbation Code(s): J44.1 - CHRONIC OBSTRUCTIVE PULMONARY DISEASE W (ACUTE) EXACERBATION Status: Acute (2) Hyponatremia Code(s): E87.1 - HYPO-OSMOLALITY AND HYPONATREMIA Status: Resolved (3) DM2 (diabetes mellitus, type 2) Status: Chronic (4) Acute and chronic respiratory failure with hypoxia Code(s): J96.21 - ACUTE AND CHRONIC RESPIRATORY FAILURE WITH HYPOXIA Status: Acute (5) Acute on chronic diastolic (congestive) heart failure Code(s): I50.33 - ACUTE ON CHRONIC DIASTOLIC (CONGESTIVE) HEART FAILURE Status : Chronic (6) Alkalosis Code(s): E87.3 - ALKALOSIS Status: Resolved (7) Atrial tachycardia Code(s): I47.1 - SUPRAVENTRICULAR TACHYCARDIA Status: Resolved (8) B12 deficiency Code(s): E53.8 - DEFICIENCY OF OTHER SPECIFIED B GROUP VITAMINS Status: Chronic (9) CHF (congestive heart failure) Code(s): I50.9 - HEART FAILURE, UNSPECIFIED Status: Chronic Qualifiers: Heart failure type: systolic (10) COPD (chronic obstructive pulmonary disease) Status: Acute (11) Physical deconditioning Code(s): R53.81 - OTHER MALAISE Status: Chronic (12) Atrial fibrillation with rapid ventricular response Code(s): I48.91 - UNSPECIFIED ATRIAL FIBRILLATION Status: Ruled-out - Plan Plan: medical unit pulmonology consultation, recommendations appreciated patient on oral antibiotics oral steroids inhaled small-volume nebulizers scheduled and as needed Supplemental O2 as needed to maintain O2 sat >88% IS Q1W while awake add incentive spirometry continue home medications as able cardiomyopathy regimen patient will go back to group home facility where she is a chronic resident on discharge.
[2019-08-12] MEDS: Budesonide 0.25 MG/2 ML NEB INH SCH (06:37)
[2019-08-12 07:52] VITALS: BP 151/72; TEMP 98
[2019-08-12] MEDS: Aspirin 81 mg Enteric Coated Tablet PO SCH (09:00)
[2019-08-12] MEDS: Saccharomyces boulardii 250 MG CAP PO SCH (09:00)
[2019-08-12] MEDS: predniSONE 20 MG TAB PO SCH (09:01)
[2019-08-12] MEDS: Acetaminophen/Codeine 30-300mg Tablet PO PRN (09:01)
[2019-08-12] MEDS: Amoxicillin/Potassium Clav 875 MG TAB PO SCH (09:02)
[2019-08-12] MEDS: Famotidine 20 MG TAB PO SCH (09:03)
[2019-08-12] MEDS: Furosemide 40 MG TAB PO SCH (09:04)
[2019-08-12] MEDS: Folic Acid 1 MG TAB PO SCH (09:04)
[2019-08-12] MEDS: metFORMIN 500 MG TAB PO SCH (09:04)
[2019-08-12] MEDS: Enoxaparin Sodium 40 MG/0.4 ML SYRINGE SC SCH (09:06)
[2019-08-12] MEDS: NPH, Human Insulin Isophane 300 UNIT/3 ML VIAL SC SCH (09:07)
[2019-08-12] MEDS: Docusate 100 MG CAP PO SCH (09:11)
--- NOTE | 2019-08-12 13:17 | PDOC.HOSPP ---
- Subjective Subjective: Seen and examined. Breathing better. Using incentive spirometry, education was given on correct use. Less wheezing. Still with cough. Overall patient is significantly improved since admission per patient. Patient stable for lower level of care. emergency manager consultation requested for assistance in transferring the patient to group home unit where she tells me she is a chronic resident. - Objective Vital Signs & Weight: Vital Signs (12 hours) Temp Pulse Resp BP BP Pulse Ox 08/12/19 07:51 98 F 91 20 151/72 H 92 L 08/12/19 06:37 84 16 94 L 08/12/19 06:36 84 16 94 L 08/12/19 04:00 98.6 F 84 20 148/76 H 94 L 08/12/19 02:46 95 Weight Weight 141 lb 9 oz Most Recent Monitor Data Heart Rate from ECG 105 NIBP 178/77 NIBP BP-Mean 110 Respiration from ECG 22 SpO2 92 I&O: 08/11/19 08/12/19 08/13/19 06:59 06:59 06:59 Intake Total 720 Output Total 1450 Balance -730 Result Diagrams: 08/07/19 04:36 08/09/19 04:32 Additional Labs: Accuchecks 08/12/19 08/12/19 08/11/19 12:27 05:08 19:57 POC Glucose 172 H 117 H 234 H 08/11/19 16:08 POC Glucose 145 H Hospitalist ROS - Review of Systems All other systems reviewed; all pertinent +/- noted in HPI/Subj - Medication Medications: Active Medications Generic Name Dose Route Start Last Admin Trade Name Freq PRN Reason Stop Dose Admin Acetaminophen 650 mg 08/06/19 11:48 08/12/19 00:47 Tylenol PO 650 mg Q4H PRN Administration Headache/Fever/Mild Pain (1-3) Acetaminophen/Codeine Phosphate 2 tab 08/06/19 15:10 08/12/19 09:01 Tylenol #3 PO 2 tab Q6H PRN Administration Severe Pain (7-10) Albuterol/Ipratropium 3 ml 08/06/19 13:00 08/12/19 06:36 Duoneb NEB 3 ml [id number] WHITNEY Administration Amoxicillin/Clavulanate Potassium 875 mg 08/06/19 21:00 08/12/19 09:02 Augmentin PO 875 mg BID WHITNEY Administration Aspirin 81 mg 08/07/19 09:00 08/12/19 09:00 Ecotrin PO 81 mg DAILY WHITNEY Administration Budesonide 0.5 mg 08/06/19 18:30 08/12/19 06:37 Pulmicort Neb Solution INH 0.25 mg BID-RT WHITNEY Administration Clonidine 0.1 mg 08/08/19 18:04 08/08/19 18:24 Catapres PO 0.1 mg Q4H PRN Administration SBP Greater Than 180 Diltiazem HCl 60 mg 08/06/19 21:00 08/12/19 09:00 Cardizem PO 60 mg BID WHITNEY Administration Docusate Sodium 100 mg 08/06/19 21:00 08/12/19 09:11 Colace PO Not Given BID WHITNEY Enoxaparin Sodium 40 mg 08/07/19 09:00 08/12/19 09:06 Lovenox SC 40 mg 0900 WHITNEY Administration Famotidine 20 mg 08/06/19 21:00 08/12/19 09:03 Pepcid PO 20 mg BID WHITNEY Administration Folic Acid 1 mg 08/07/19 09:00 08/12/19 09:04 Folvite PO 1 mg DAILY WHITNEY Administration Furosemide 40 mg 08/07/19 07:30 08/12/19 09:04 Lasix PO 40 mg DAILY-AC WHITNEY Administration Guaifenesin/Dextromethorphan 15 ml 08/06/19 11:48 08/11/19 21:12 Robitussin Dm PO 15 ml Q4H PRN Administration Cough Insulin Human Lispro 0 units 08/06/19 11:48 08/10/19 05:56 Humalog SC 2 unit .MODERATE SLIDING SC PRN Administration Moderate Correctional Scale Insulin Human Lispro 0 units 08/06/19 11:48 08/09/19 20:42 Humalog SC 3 unit .BEDTIME SLIDING SC PRN Administration Bedtime Correctional Scale Insulin Human NPH 15 unit 08/09/19 09:00 08/12/19 09:07 Humulin N SC 15 unit QAM WHITNEY Administration Insulin Human NPH 10 unit 08/08/19 21:00 08/11/19 20:48 Humulin N SC 10 unit HS WHITNEY Administration Metformin HCl 500 mg 08/09/19 08:00 08/12/19 09:04 Glucophage PO 500 mg BID-WM WHITNEY Administration Metoprolol Succinate 25 mg 08/07/19 09:00 08/12/19 09:11 Toprol Xl PO Not Given DAILY WHITNEY Prednisone 40 mg 08/10/19 08:00 08/12/19 09:01 Prednisone PO 40 mg QAM-WM WHITNEY Administration Saccharomyces Tulioi 250 mg 08/09/19 09:00 08/12/19 09:00 Florastor PO 250 mg DAILY WHITNEY Administration - Exam General Appearance: NAD, awake alert Eye: anicteric sclera ENT: normocephalic atraumatic, moist mucosa Neck: supple, no lymphadenopathy Heart: no murmur, no gallops, no rubs Respiratory: CTAB, no wheezes, no rales, no ronchi Respiratory - other findings: Better air movement - no audible wheezing today Gastrointestinal: soft, non-tender, no guarding, no rigidity Extremities: no edema Skin: no lesions, no rashes Neurological: cranial nerve grossly intact, no focal deficits Musculoskeletal: generalized weakness Psychiatric: normal affect, A&O x 3 Hosp A/P (1) COPD exacerbation Code(s): J44.1 - CHRONIC OBSTRUCTIVE PULMONARY DISEASE W (ACUTE) EXACERBATION Status: Acute (2) Hyponatremia Code(s): E87.1 - HYPO-OSMOLALITY AND HYPONATREMIA Status: Resolved (3) DM2 (diabetes mellitus, type 2) Status: Chronic (4) Acute and chronic respiratory failure with hypoxia Code(s): J96.21 - ACUTE AND CHRONIC RESPIRATORY FAILURE WITH HYPOXIA Status: Acute (5) Acute on chronic diastolic (congestive) heart failure Code(s): I50.33 - ACUTE ON CHRONIC DIASTOLIC (CONGESTIVE) HEART FAILURE Status : Chronic (6) Alkalosis Code(s): E87.3 - ALKALOSIS Status: Resolved (7) Atrial tachycardia Code(s): I47.1 - SUPRAVENTRICULAR TACHYCARDIA Status: Resolved (8) B12 deficiency Code(s): E53.8 - DEFICIENCY OF OTHER SPECIFIED B GROUP VITAMINS Status: Chronic (9) CHF (congestive heart failure) Code(s): I50.9 - HEART FAILURE, UNSPECIFIED Status: Chronic Qualifiers: Heart failure type: systolic (10) COPD (chronic obstructive pulmonary disease) Status: Acute (11) Physical deconditioning Code(s): R53.81 - OTHER MALAISE Status: Chronic (12) Atrial fibrillation with rapid ventricular response Code(s): I48.91 - UNSPECIFIED ATRIAL FIBRILLATION Status: Ruled-out - Plan Plan: medical unit, D/c planning - stable for lower level of care pulmonology consultation, recommendations appreciated patient on oral antibiotics oral steroids inhaled small-volume nebulizers scheduled and as needed Supplemental O2 as needed to maintain O2 sat >88% IS Q1W while awake continue home medications as able cardiomyopathy regimen SNF placement
--- NOTE | 2019-08-12 18:48 | DIS ---
DATE OF ADMISSION: 08/06/2019 DATE OF DISCHARGE: 08/12/2019 REASON FOR HOSPITALIZATION: Shortness of breath. SIGNIFICANT FINDINGS: The patient was found to have acute respiratory failure, requiring supplemental oxygen. The patient with acute COPD exacerbation, requiring IV steroids and IV antibiotics. The patient improved with maximal medical therapy. PROCEDURES PERFORMED AND TREATMENTS RENDERED: The patient had maximum medical therapy from Pulmonology and Internal Medicine physicians and had a good improvement of symptoms. CONDITION ON DISCHARGE: Stable. SPECIFIC INSTRUCTIONS FOR THE PATIENT/FAMILY: 1. The patient is recommended safe for [facility] to [facility] a [facility]. 2. The patient is recommended to take oral antibiotics for a full course for resolution of COPD exacerbation. 3. The patient is recommended to complete a prednisone taper as directed. 4. The patient is recommended to follow up with primary care physician in the next 1 to 2 days. 5. The patient is recommended to follow up with Pulmonology in the next 2 to 4 weeks. 6. The patient is recommended to follow up with all other specialists as directed. DISCHARGE MEDICATIONS: Please see full discharge medication list for details. 1. Amoxicillin 875 mg one tablet p.o. b.i.d. for an additional four days, eight tablets. 2. Prednisone 10 mg tablets with the following taper four tabs p.o. daily for 3 days, then three tabs p.o. daily for 3 days, then 2 tablets p.o. daily for 3 days, then 1 tablet p.o. daily for 3 days, then stop. All other home medications were continued without changes and please see full list for detail. HOSPITAL COURSE: Ms. Cedillo is a pleasant 79-year-old white female, who presented to [facility] on 08/06/2019, with shortness of breath-please see full notes from emergency department physician, consultation from Pulmonology, and history and physical for full details. Please see daily progress notes from all specialists for progression. The patient was diagnosed with acute COPD exacerbation, placed on maximum medical therapy including IV steroids and IV antibiotics in addition to small volume nebulizers scheduled and as needed. The patient required supplemental oxygen to maintain O2 saturations. With maximum medical therapy, the patient did have significant improvement and O2 demands return to her baseline. The patient was recommended safe for discharge by all specialists on 08/12/2019, with a continuation of a COPD regimen and oral formulary. The patient recommended to complete a prednisone taper as described in discharge medication reconciliation. The patient recommended to complete a full course of oral antibiotics. The patient recommended to use small volume nebulizers scheduled and as needed. The patient is recommended to follow up with primary care physician at [facility] in the next 1 to 2 days , who will re-evaluate all medications and adjust appropriately. The patient is recommended to follow up with Pulmonology in the next 2 to 4 weeks. The patient is recommended to follow up with all other specialists as directed. The patient is recommended to return to acute care hospital immediately if signs or symptoms return, worsen, or any other new symptoms occur. Greater than 34 minutes spent coordinating care and discharge process Job ID: [id number] MTDD
--- NOTE | 2019-08-15 03:38 | PQF ---
GÓMEZ TRUJILLO ERIK [id number] [facility] B03 [id number] CLINICAL DOCUMENTATION CLARIFICATION FORM: POST DISCHARGE Addendum to original discharge summary date: ____ Late entry note date: __ DATE:08/15/19 ATTN: Jv Das Please exercise your independent, professional judgment in responding to the clarification form. Clinical indicators are provided on the bottom of this form for your review Can you please further specify id Sepsis is ruled in or ruled out? Sepsis [ XX ] Ruled in diagnosis [ XX ] Continue to treat [ ] Resolved [ ] Ruled out diagnosis [ ] Cannot rule out diagnosis [ ] Other diagnosis please specify [ ] Unable to determine In addition, please specify: Present on Admission (POA): [ XX ] Yes [ ] No [ ] Unable to determine For continuity of documentation, please document condition throughout progress notes and discharge summary. Thank You. CLINICAL INDICATORS - SIGNS / SYMPTOMS / LABS PN pg7 08/07 Dr. Jarrett-Sepsis due to suspected Bronchopneumonia ?gram negative PN pg7 08/07 Dr. Jarrett-lactic acidosis PN pg7 08/07 Dr. Jarrett-acute on chronic hypoxemic/hypercapnic resp failure due to COPD/CHF exacerbation H&P pg2 08/06 Dr. Roth-Blood Pressure 136/74, Pulse 120 per minute, respiratory rate 28 per minute, temperature 98.2 degrees Fahrenheit RISK FACTORS Former smoker- Consult 08/06 Dr. Roth pg.1 COPD-Consult 08/06 Dr. Roth pg.1 Acute respiratory failure- Ds pg.1 Emphysema-H&P 08/06 Dr. Roth TREATMENTS Levofloxacin 750mg IV-DEC 25 IV fluids- DEC 25 [id number] IV steroids-DEC 25 Pulmonary Consult 08/06 Dr. Mcintosh Chest X ray 08/06 Chest/ Thorax CTA 08/06 (This form is maintained as a part of the permanent medical record) 2014 [employer], [employer]. All Rights Reserved [email or web address] [not provided] MTDD
--- NOTE | 2019-08-15 03:43 | PQF ---
GÓMEZ TRUJILLO ERIK [id number] [facility]- B03 [id number] CLINICAL DOCUMENTATION CLARIFICATION FORM: POST DISCHARGE Addendum to original discharge summary date: ____ Late entry note date: __ DATE: 08/15/19 ATTN: Dr. Adriano Ernandez Please exercise your independent, professional judgment in responding to the clarification form. Clinical indicators are provided on the bottom of this form for your review Can you please further specify the type and acuity of CHF based on the clinical indicators below? Please check appropriate box(s): HEART FAILURE: A. TYPE: [ ] Systolic / HFrEF [ ] Diastolic / HFpEF [ ] Combined Systolic / Diastolic B. ACUITY [ ] Acute [ ] Acute on Chronic [ ] Chronic [ XX ] Other diagnosis _Patient does not have diagnosis of CHF [ ] Unable to determine In addition, please specify: Present on Admission (POA): [ ] Yes [ XX ] No [ ] Unable to determine For continuity of documentation, please document condition throughout progress notes and discharge summary. Thank You. CLINICAL INDICATORS - SIGNS / SYMPTOMS / LABS Chest X ray 08/06- No acute cardiopulmonary findings Consult 08/06 Dr. Mcintosh pg.1=- presents with increased SOB, cough, yellow sputum , but no fever or chills Consult 08/06 Dr. Mcintosh pg.2- Acute on chronic respiratory failure secondary to CHF and [employer] exacerbation Laboratory 08/06- BNP 71.0 Ds pg.1- The patient was found to have acute respiratory failure RISKS: Former smoker- Consult 08/06 Dr. Roth pg.1 COPD-Consult 08/06 Dr. Roth pg.1 Acute respiratory failure- Ds pg.1 DM-H&P 08/06 Dr. Roth TREATMENTS: Chest X ray 08/06 Chest/ Thorax CTA 08/[address] Mcintosh IV steroids-DEC 25 (This form is maintained as a part of the permanent medical record) 2014 [employer], [employer]. All Rights Reserved [email or web address] [not provided] MTDD
== END 2019-08-12 14:40 | DRG 871 ==
LOC: ERS 07:44 → ERHOLD 09:38 → IMCU/EMU 15:15 → T4-A 08-10 19:15
PROVIDERS: ADMIT Internal Medicine; ATTEND Internal Medicine
DX: A41.9 Sepsis, unspecified organism (principal); J96.21 Acute and chronic respiratory failure with hypoxia; J96.22 Acute and chronic respiratory failure with hypercapnia; I47.1 Supraventricular tachycardia; E87.1 Hypo-osmolality and hyponatremia; E87.3 Alkalosis; E87.2 Acidosis; Z66 Do not resuscitate; J43.9 Emphysema, unspecified; E53.8 Deficiency of other specified B group vitamins; E11.9 Type 2 diabetes mellitus without complications; I25.10 Atherosclerotic heart disease of native coronary artery without angina pectoris; D64.9 Anemia, unspecified; F32.9 Major depressive disorder, single episode, unspecified; Z79.51 Long term (current) use of inhaled steroids; Z79.52 Long term (current) use of systemic steroids; Z79.84 Long term (current) use of oral hypoglycemic drugs; Z79.82 Long term (current) use of aspirin; Z79.899 Other long term (current) drug therapy; Z87.891 Personal history of nicotine dependence; Z99.81 Dependence on supplemental oxygen; E66.01 Morbid (severe) obesity due to excess calories; Z68.25 Body mass index [BMI] 25.0-25.9, adult; I10 Essential (primary) hypertension
CPT/HCPCS: 36415; 36416; 71045; 71275; 80048; 80053; 82550; 82805; 83605; 83690; 83735; 83880; 84484; 85025; 85379; 87040; 87070; 87205; 87804; 93005; 94640; 94660; 96365; 96366; 96367; 96375; J0360; J1100; J1650; J1815; J1956; J2920; J3475; J7512; J7611; J7620; J7626; Q9966